=== PATIENT | female | born 1950 | race Caucasian/White ===

== ENCOUNTER → 2017-04-07 | Outpatient (CLI) | payer MEDICARE, BC ==
--- NOTE | 2017-04-08 09:08 | MM ---
Reason for exam: screening (asymptomatic). Last mammogram was performed 1 year ago. Physical Findings: A clinical breast exam by your physician is recommended on an annual basis and results should be correlated with mammographic findings. MG 3D Screening Mammo W/Cad Bilateral CC and MLO view(s) were taken. Prior study comparison: April 03, 2016, bilateral MG 3d screening mammo w/cad. May 14, 2010, bilateral digital screening mammogram. There are scattered fibroglandular densities. There is no discrete abnormality. No significant changes when compared with prior studies. ASSESSMENT: Negative, BI-RAD 1 RECOMMENDATION: Routine screening mammogram of both breasts in 1 year.
== END | disposition home or self-care (01) ==
LOC: RADMAMWWP 13:18
PROVIDERS: ATTEND Family Medicine
DX: Z12.31 Encounter for screening mammogram for malignant neoplasm of breast (principal)
CPT/HCPCS: 77063; G0202

== ENCOUNTER 2017-04-13 09:19 | Emergency (ER) | payer MEDICARE, BC ==
[2017-04-13 09:26] VITALS: RESP 18
[2017-04-13] MEDS ORDERED: HYDROmorphone 1 MG/ML 1 ML SYRINGE IVP STA ×2 (09:45→11:31)
[2017-04-13] MEDS ORDERED: SODIUM CHLORIDE 0.9% 1,000 ML IV STA (09:45)
[2017-04-13] MEDS ORDERED: ONDANSETRON 4 MG/2 ML VIAL IVP STA ×2 (09:45→11:31)
[2017-04-13] MEDS ORDERED: RX INFO: IV CONTRAST WAS GIVEN 1 EACH MISC MISCELLANE PRN (09:46)
--- NOTE | 2017-04-13 09:49 | ED ---
Abdominal Pain HPI - General Chief Complaint: Abdominal Pain Stated Complaint: Abdominal pain Time Seen by Provider: 04/13/17 09:28 Source: patient, RN notes reviewed Mode of arrival: ambulatory Limitations: no limitations - History of Present Illness Initial Comments: 58-year-old female presented emergency Department chief complaint abdominal pain. Patient states pain started on Wednesday and has worsened. Patient states that she saw her primary care physician's office yesterday and had ultrasound and lab work ordered. Patient states that she had SMALL MORNING WENT OVER TO THE OFFICE She HAD WORSENING PAIN AND SHE WAS SENT HERE FOR FURTHER EVALUATION. AT THAT TIME ULTRAM WAS NOT RED. PATIENT HAD PRIOR HISTORY OF KIDNEY STONES BUT STATES THE PAIN SEEMS TO BE DIFFERENT. SHE'S HAD NO NAUSEA VOMITING. SHE' S HAD SOME LOOSE STOOLS BUT DENIES ANY FEVER OR CHILLS. DENIES ANY CHEST PAIN OR SHORTNESS OF BREATH. SHE STATES NOTHING MAKES THE PAIN FEEL BETTER OR WORSE AT THIS TIME. - Related Data Home Medications Medication Instructions Recorded Confirmed Biotin 300 mcg PO DAILY 04/13/17 04/13/17 Cholecalciferol [Vitamin D3] 1,000 unit PO DAILY 04/13/17 04/13/17 Furosemide [Lasix] 20 mg PO DAILY 04/13/17 04/13/17 Lisinopril [Prinivil] 10 mg PO DAILY 04/13/17 04/13/17 [place]-3/Dha/Epa/Fish Oil [Fish Oil 1 cap PO DAILY 04/13/17 04/13/17 500 mg Softgel] Vitamin E (Dl,Tocopheryl Acet) 400 unit PO DAILY 04/13/17 04/13/17 [Vitamin E] metFORMIN HCL [Glucophage] 1,000 mg PO DAILY 04/13/17 04/13/17 metFORMIN HCL [Glucophage] 500 mg PO HS 04/13/17 04/13/17 traMADol HCL [Ultram] 50 mg PO DAILY PRN 04/13/17 04/13/17 Previous Rx's Medication Instructions Recorded Ciprofloxacin HCl [Cipro] 500 mg PO Q12HR #14 tablet 04/13/17 Hydrocodone/Acetaminophen [[place] 1 tab PO Q6HR PRN #15 tab 04/13/17 5-325] Allergies Allergy/AdvReac Type Severity Reaction Status Date / Time No Known Allergies Allergy Verified 04/13/17 09:53 Review of Systems ROS Statement: Those systems with pertinent positive or pertinent negative responses have been documented in the HPI. ROS Other: All systems not noted in ROS Statement are negative. Past Medical History Past Medical History: Heart Failure, Diabetes Mellitus, Hypertension History of Any Multi-Drug Resistant Organisms: None Reported Past Surgical History: Hysterectomy, Orthopedic Surgery Additional Past Surgical History / Comment(s): lens implants, knee Past Psychological History: No Psychological Hx Reported Smoking Status: Never smoker Past Alcohol Use History: None Reported Past Drug Use History: None Reported General Exam Limitations: no limitations General appearance: alert, in no apparent distress Head exam: Present: atraumatic, normocephalic, normal inspection Neck exam: Present: normal inspection. Absent: tenderness, meningismus, lymphadenopathy Respiratory exam: Present: normal lung sounds bilaterally. Absent: respiratory distress, wheezes, rales, rhonchi, stridor Cardiovascular Exam: Present: regular rate, normal rhythm, normal heart sounds. Absent: systolic murmur, diastolic murmur, rubs, gallop, clicks GI/Abdominal exam: Present: soft, tenderness (Moderate periumbilical tenderness) , normal bowel sounds. Absent: distended, guarding, rebound, rigid Back exam: Absent: CVA tenderness (R), CVA tenderness (L) Neurological exam: Present: alert, oriented X3, CN II-XII intact Skin exam: Present: warm, dry, intact, normal color. Absent: rash Course Vital Signs 04/13/17 04/13/17 09:22 10:16 Temperature 97.7 F Pulse Rate 93 86 Respiratory 18 18 Rate Blood Pressure 143/86 128/69 O2 Sat by Pulse 98 97 Oximetry Medical Decision Making - Medical Decision Making 66-year-old female presented for periumbilical abdominal pain. Patient ultrasound does not show anything significant jumping to her pain. Patient lab work is unremarkable CT does not show any acute process. Patient's urinalysis does reveal urinary tract infection. Patient we treated for this at this time return parameters were discussed. - Lab Data Result diagrams: 04/13/17 10:00 04/13/17 10:00 Lab Results 04/13/17 04/13/17 04/13/17 Range/Units 10:00 10:00 10:00 WBC 8.5 (3.8-10.6) k/uL RBC 4.59 (3.80-5.40) m/uL Hgb 14.6 (11.4-16.0) gm/dL Hct 42.0 (34.0-46.0) % MCV 91.4 (80.0-100.0) fL MCH 31.7 (25.0-35.0) pg MCHC 34.7 (31.0-37.0) g/dL RDW 12.6 (11.5-15.5) % Plt Count 283 (150-450) k/uL Neutrophils % 73 % Lymphocytes % 18 % Monocytes % 5 % Eosinophils % 2 % Basophils % 1 % Neutrophils # 6.2 (1.3-7.7) k/uL Lymphocytes # 1.5 (1.0-4.8) k/uL Monocytes # 0.5 (0-1.0) k/uL Eosinophils # 0.1 (0-0.7) k/uL Basophils # 0.1 (0-0.2) k/uL Sodium 141 (137-145) mmol/L Potassium 4.2 (3.5-5.1) mmol/L Chloride 103 (98-107) mmol/L Carbon Dioxide 24 (22-30) mmol/L Anion Gap 14 mmol/L BUN 20 H (7-17) mg/dL Creatinine 0.97 (0.52-1.04) mg/dL Est GFR (MDRD) Af Amer >60 (>60 ml/min/1.73 sqM) Est GFR (MDRD) Non-Af 57 (>60 ml/min/1.73 sqM) Glucose 127 H (74-99) mg/dL Plasma Lactic Acid Naren 1.9 (0.7-2.0) mmol/L Calcium 9.9 (8.4-10.2) mg/dL Total Bilirubin 0.6 (0.2-1.3) mg/dL AST 24 (14-36) U/L ALT 36 (9-52) U/L Alkaline Phosphatase 58 (38-126) U/L Total Protein 8.2 (6.3-8.2) g/dL Albumin 4.6 (3.5-5.0) g/dL Amylase 49 (30-110) U/L Lipase 160 (23-300) U/L Urine Color Urine Appearance (Clear) Urine pH (5.0-8.0) Ur Specific [place] (1.001-1.035) Urine Protein (Negative) Urine Glucose (UA) (Negative) Urine Ketones (Negative) Urine Blood (Negative) Urine Nitrite (Negative) Urine Bilirubin (Negative) Urine Urobilinogen (<2.0) mg/dL Ur Leukocyte Esterase (Negative) Urine RBC (0-5) /hpf Urine WBC (0-5) /hpf Ur Squamous Epith Cells (0-4) /hpf Urine Bacteria (None) /hpf Urine Mucus (None) /hpf 04/13/17 Range/Units 10:00 WBC (3.8-10.6) k/uL RBC (3.80-5.40) m/uL Hgb (11.4-16.0) gm/dL Hct (34.0-46.0) % MCV (80.0-100.0) fL MCH (25.0-35.0) pg MCHC (31.0-37.0) g/dL RDW (11.5-15.5) % Plt Count (150-450) k/uL Neutrophils % % Lymphocytes % % Monocytes % % Eosinophils % % Basophils % % Neutrophils # (1.3-7.7) k/uL Lymphocytes # (1.0-4.8) k/uL Monocytes # (0-1.0) k/uL Eosinophils # (0-0.7) k/uL Basophils # (0-0.2) k/uL Sodium (137-145) mmol/L Potassium (3.5-5.1) mmol/L Chloride (98-107) mmol/L Carbon Dioxide (22-30) mmol/L Anion Gap mmol/L BUN (7-17) mg/dL Creatinine (0.52-1.04) mg/dL Est GFR (MDRD) Af Amer (>60 ml/min/1.73 sqM) Est GFR (MDRD) Non-Af (>60 ml/min/1.73 sqM) Glucose (74-99) mg/dL Plasma Lactic Acid Naren (0.7-2.0) mmol/L Calcium (8.4-10.2) mg/dL Total Bilirubin (0.2-1.3) mg/dL AST (14-36) U/L ALT (9-52) U/L Alkaline Phosphatase (38-126) U/L Total Protein (6.3-8.2) g/dL Albumin (3.5-5.0) g/dL Amylase (30-110) U/L Lipase (23-300) U/L Urine Color Yellow Urine Appearance Clear (Clear) Urine pH 5.5 (5.0-8.0) Ur Specific [place] 1.016 (1.001-1.035) Urine Protein Trace H (Negative) Urine Glucose (UA) Negative (Negative) Urine Ketones Trace H (Negative) Urine Blood Negative (Negative) Urine Nitrite Negative (Negative) Urine Bilirubin Negative (Negative) Urine Urobilinogen <2.0 (<2.0) mg/dL Ur Leukocyte Esterase Moderate H (Negative) Urine RBC 1 (0-5) /hpf Urine WBC 32 H (0-5) /hpf Ur Squamous Epith Cells 5 H (0-4) /hpf Urine Bacteria Many H (None) /hpf Urine Mucus Occasional H (None) /hpf Disposition Clinical Impression: UTI (urinary tract infection), Abdominal pain Disposition: HOME SELF-CARE Condition: Stable Instructions: Abdominal Pain (ED) Additional Instructions: Please return to the Emergency Department if symptoms worsen or any other concerns. Prescriptions: Ciprofloxacin HCl [Cipro] 500 mg PO Q12HR #14 tablet Hydrocodone/Acetaminophen [[place] 5-325] 1 tab PO Q6HR PRN #15 tab PRN Reason: Pain Referrals: Dewayne Veliz MD [Primary Care Provider] - 1-2 days Time of Disposition: 11:33
[2017-04-13 10:28] LABS: Basophils # (A) 0.1 k/uL (0-0.2); Basophils % (A) 1 %; CHCM 35.2; Eosinophils # (A) 0.1 k/uL (0-0.7); Eosinophils % (A) 2 %; HDW 2.47; HGB 14.6 gm/dL (11.4-16.0); Luc # (Auto) 0.17; Luc % (Auto) 2; Lymphocytes # (A) 1.5 k/uL (1.0-4.8); Lymphocytes % (A) 18 %; MCH 31.7 pg (25.0-35.0); MCHC 34.7 g/dL (31.0-37.0); MCV 91.4 fL (80.0-100.0); Mean Platelet Volume 7.3; Monocytes # (A) 0.5 k/uL (0-1.0); Monocytes % (A) 5 %; Neutrophils # (A) 6.2 k/uL (1.3-7.7); Neutrophils % (A) 73 %; RBC 4.59 m/uL (3.80-5.40); RDW 12.6 % (11.5-15.5); WBC 8.5 k/uL (3.8-10.6); WBC (Perox) 8.18
[2017-04-13 10:33] LABS: Appearance,Urine Clear (Clear); Bacteria,Urine Many /hpf; Bilirubin,Urine Negative (Negative); Glucose,Urine (UA) Negative (Negative); Ketones,Urine Trace (Negative); Leukocyte Esterase,Urine Moderate (Negative); Mucus,Urine Occasional /hpf; Nitrite,Urine Negative (Negative); PH, Urine 5.5 (5.0-8.0); Particle Count 6856; Protein,Urine Trace (Negative); RBC,Urine 1 /hpf (0-5); Specific Gravity,Urine 1.016 (1.001-1.035); Squamous Epithelial Cell,Urine 5 /hpf (0-4); UA Billing (MACRO vs. MICRO) MICRO; Urobilinogen,Urine <2.0 mg/dL (<2.0); WBC,Urine 32 /hpf (0-5)
[2017-04-13 10:41] LABS: ALT 36 U/L (9-52); AST 24 U/L (14-36); Alkaline Phosphatase 58 U/L (38-126); Amylase 49 U/L (30-110); Anion Gap 14 mmol/L; Blood Urea Nitrogen 20 mg/dL (7-17); Calcium 9.9 mg/dL (8.4-10.2); Carbon Dioxide 24 mmol/L (22-30); Chloride 103 mmol/L (98-107); Glucose 127 mg/dL (74-99); Non-African American GFR(MDRD) 57 (>60 ml/min/1.73 sqM); Potassium 4.2 mmol/L (3.5-5.1); Sodium 141 mmol/L (137-145); Total Bilirubin 0.6 mg/dL (0.2-1.3); Total Protein 8.2 g/dL (6.3-8.2)
--- NOTE | 2017-04-13 11:16 | CT ---
EXAMINATION TYPE: CT abdomen pelvis w con DATE OF EXAM: 04/13/2017 COMPARISON: NONE HISTORY: Abdominal pain CT DLP: 1307 mGycm CONTRAST: CT scan of the abdomen and pelvis is performed without Oral Contrast and with IV Contrast, patient in jected with 100 ml mL of Omnipaque 300. FINDINGS: LUNG BASES-: No visible nodule. No infiltrate. LIVER/GB: There is evidence of fatty liver. No calcified gallstones. Stable since the liver. Biliary tree is of normal caliber. PANCREAS: No inflammation. No distinct mass. SPLEEN: No splenic enlargement. No lesion seen. ADRENALS: Stable left-sided adrenal nodule. Right adrenal gland is unremarkable. No thickening. KIDNEYS/BLADDER: No hydronephrosis. No nephrolithiasis. Renal cysts are stable. Urinary bladder gr ossly unremarkable. BOWEL: Normal appendix. Normal bowel caliber. No inflammation. Sigmoid diverticulosis without diver ticulitis. GENITAL ORGANS: No gross abnormality. LYMPH NODES: No greater than 1cm abdominal or pelvic lymph nodes are appreciated. AORTA: No significant abnormality. OSSEOUS STRUCTURES: No significant abnormality is seen. OTHER: Grade 2 anterolisthesis L5 on S1 with severe vacuum changes are unchanged. IMPRESSION: 1. No acute intra-abdominal process identified.
[2017-04-13] MEDS ORDERED: LEVOFLOXACIN 500 MG TAB PO STA (11:32)
[2017-04-13 12:22] VITALS: BP 126/73; PULSE 62; TEMP 98
== END 2017-04-13 12:20 | disposition home or self-care (01) ==
LOC: EC 09:19
DX: N39.0 Urinary tract infection, site not specified (principal); R10.33 Periumbilical pain; I11.0 Hypertensive heart disease with heart failure; I50.9 Heart failure, unspecified; E11.9 Type 2 diabetes mellitus without complications; Z79.84 Long term (current) use of oral hypoglycemic drugs; Z79.899 Other long term (current) drug therapy
CPT/HCPCS: 36415; 80053; 82150; 83605; 83690; 85025; 81001; 74177; 99284; 96374; 96375; 96376 ×2; 96361; J2405; J1170; Q9967

== ENCOUNTER → 2017-04-13 | Outpatient (CLI) | payer MEDICARE, BC ==
--- NOTE | 2017-04-13 09:40 | US ---
EXAMINATION TYPE: US gallbladder DATE OF EXAM: 04/13/2017 COMPARISON: 02/12/2016 CLINICAL HISTORY: 66-year-old female with R10 abdominal Pain. Acute epigastric pain. TECHNIQUE: Multiple sonographic images of the right upper quadrant are obtained. FINDINGS: Liver Length: 15.3 cm Gallbladder Wall: 0.1 cm CBD: 5.8 mm. Right Kidney: 9.1 x 3.9 x 5.0 cm Pancreas: wnl Liver: Diffuse heterogeneous and increased echotexture. There is a vague hypoechoic area measuring 14 x 9 x 9 mm in the posterior left hepatic lobe and a vague hypoechoic area measuring 12 x 8 x 10 mm i n the inferior right hepatic lobe that shows suggestion of posterior through transmission. Gallbladder: wnl Evidence for sonographic Joseph's sign: no CBD: wnl Right Kidney: No hydronephrosis. There is a 1.4 cm benign cortical cyst at the upper pole. A 7 mm ec hogenic focus at the lower pole shows no shadowing and probably represents a prominent vascular flexi on. IMPRESSION: 1. Suspect moderate hepatic steatosis. Correlate with LFTs, lipid profile, and patient risk factors. 2. Two small hypoechoic lesions within the liver measuring up to 1.4 cm. The one on the right likely corresponds to a flash filling hemangioma (on a background of fatty liver) when correlating with prio r CT. The lesion on the left is nonspecific. 6 month follow-up liver ultrasound can reassess.
== END | disposition home or self-care (01) ==
LOC: RADUSWWP 08:19
PROVIDERS: ATTEND Family Medicine
DX: K76.9 Liver disease, unspecified (principal)
CPT/HCPCS: 76705

== ENCOUNTER → 2017-04-29 | Outpatient (CLI) | payer MEDICARE, BC ==
--- NOTE | 2017-04-29 09:19 | NM ---
Nuclear medicine hepatobiliary scan. HISTORY: Pain. DOSAGE: The patient received 8 ounces ensure plus and 5.5 mCi of Technetium 99m Choletec. FINDINGS: There is normal hepatic extraction. The gallbladder is seen by 16 minutes. There is bilia ry to bowel clearance by 30 minutes. Ejection fraction is 98%. IMPRESSION: 1. Gallbladder is seen within normal time. 2. Ejection fraction of 98% which can occasionally be seen with hyperdynamic gallbladder. Correlate c linically.
== END | disposition home or self-care (01) ==
LOC: RADNMMAIN 06:48
PROVIDERS: ATTEND Surgery
DX: R10.84 Generalized abdominal pain (principal)
CPT/HCPCS: 78226; A9537

== ENCOUNTER → 2017-10-22 | Outpatient (CLI) | payer MEDICARE, BC ==
--- NOTE | 2017-10-22 15:24 | XR ---
EXAMINATION TYPE: XR chest 2V DATE OF EXAM: 10/22/2017 COMPARISON: Prior chest x-ray 04/24/2016 HISTORY: Z 13.9, preop back surgery, hypertension, abnormal chest x-ray TECHNIQUE: Frontal and lateral views of the chest are obtained. FINDINGS: Scoliotic curvature is present in the visualized thoracic spine. Bandlike area of increase d attenuation present at the left costophrenic angle level. Apical pleural thickening is stable. Prom inent lung volumes suggestive of underlying COPD. No evident airspace disease, pneumothorax, or pleur al effusion. Heart is small. Pulmonary vascularity and jett are stable. IMPRESSION: No acute cardiopulmonary process. Probable scarring at the left lung base.
== END | disposition home or self-care (01) ==
LOC: RADXRMAIN 11:58
PROVIDERS: ATTEND Orthopaedic Surgery Orthopaedic Surgery of the Spine
DX: Z13.9 Encounter for screening, unspecified (principal)
CPT/HCPCS: 71046; 87070

== ENCOUNTER → 2017-10-30 | Outpatient (CLI) | payer MEDICARE, BC | END | disposition home or self-care (01) | LOC: LABWHC1 10:00 | PROVIDERS: ATTEND Orthopaedic Surgery Orthopaedic Surgery of the Spine | DX: Z01.818 Encounter for other preprocedural examination (principal); M48.062 Spinal stenosis, lumbar region with neurogenic claudication | CPT/HCPCS: 86850; 86900; 86901 ==

== ENCOUNTER 2017-11-03 10:21 | Inpatient (IN) | payer MEDICARE, BC ==
[2017-10-26 17:44] VITALS: BMI 26.2
[~2017-11-03 10:21] MED LIST: BACITRACIN 50,000 UNIT, POLYMYXIN B 500,000 UNIT in SODIUM CHLORIDE 0.9% IRRIGATIO 1,00... IRRIGATION ONE; DEXAMETHASONE SOD PHOSPHATE 10 MG/ML 1 ML VIAL IV ONE; HYDROmorphone 0.5 MG/0.5 ML SYRINGE IVP PRN; ONDANSETRON 4 MG/2 ML VIAL IVP ONE; ceFAZolin IN SWFI 2 GM/20 ML SYRINGE IVP ONE
[2017-11-03] MEDS ORDERED: LIDOCAINE 1% 20 ML VIAL (10MG/ML) FOR IV START INTRADERMA ONE (11:18)
[2017-11-03] MEDS: LACTATED RINGERS 1,000 ML IV SCH (11:18)
[2017-11-03 11:21] LABS: Glucose,Whole Blood 129 mg/dL (75-99)
[2017-11-03] MEDS ORDERED: PHENYLEPHRINE-0.9% NACL SYG 1 MG/10 ML SYRINGE ONE (12:34)
[2017-11-03] MEDS ORDERED: LIDOCAINE 1% INJ 10MG/ML (20 ML MDV) ONE (12:34)
[2017-11-03] MEDS ORDERED: ROCURONIUM BROMIDE 10 MG/ML 10 ML VIAL IV ONE (12:34)
[2017-11-03] MEDS ORDERED: HYDROmorphone (PF) 1 MG/ML ONE (12:34)
[2017-11-03] MEDS ORDERED: SUCCINYLCHOLINE CHLORIDE 100 MG/5 ML SYR IV ONE (12:34)
[2017-11-03] MEDS ORDERED: GLYCOPYRROLATE 0.2 MG/ML 2 ML VIAL ONE (12:34)
[2017-11-03] MEDS ORDERED: NEOSTIGMINE 1 MG/ML 10 ML VIAL ONE (12:34)
[2017-11-03] MEDS ORDERED: ePHEDrine SULFATE/0.9% NACL/PF 50 MG/5 ML SYRINGE IV ONE (12:34)
[2017-11-03] MEDS ORDERED: PROPOFOL 10 MG/ML 20 ML VIAL IV ONE (12:34)
[2017-11-03] MEDS ORDERED: fentaNYL (PF) 50 MCG/ML 2 ML AMP ONE (12:34)
[2017-11-03] MEDS ORDERED: hydrALAZINE HCL 20 MG/ML 1 ML VIAL ONE (12:34)
[2017-11-03] MEDS ORDERED: SODIUM CHLORIDE 0.9% IRRIG 1,000 ML BTL IRRIGATION ONE (12:34)
[2017-11-03] MEDS ORDERED: HEPARIN SODIUM,PORCINE 10,000 UNIT/ML 1 ML VIAL ONE (12:34)
[2017-11-03] MEDS ORDERED: MIDAZOLAM 2 MG/2 ML VIAL ONE (12:34)
[2017-11-03] MEDS ORDERED: THROMBIN (BOVINE) 5,000 UNIT VIAL TOPICAL ONE (12:52)
[2017-11-03] MEDS ORDERED: LIDOCAINE 0.5% (PF) 5 MG/ML (50 ML SDV) SQ ONE (12:52)
[2017-11-03] MEDS ORDERED: GELATIN SPONGE,ABSORB (LARGE) 1 EACH SPONGE TOPICAL ONE (12:52)
[2017-11-03] MEDS ORDERED: BUPIVACAINE (PF) 0.25% 30 ML VIAL SQ ONE (12:52)
[2017-11-03] MEDS ORDERED: LACTATED RINGERS 1,000 ML IV ONE ×2 (13:40→15:57)
--- NOTE | 2017-11-03 15:53 | XR ---
Limited lumbar spine HISTORY: Needle placement Correlation to CT abdomen pelvis 08/17/2017 Single lateral view of the lumbar spine demonstrates anterolisthesis at the lumbar sacral junction, g rade 2 with associated loss of disc height and vacuum phenomenon. Spondylolysis is suspected at what is believed to be L5. The needle is overlying the superior endplate of L5. IMPRESSION: Orthopedic localization
[2017-11-03] MEDS ORDERED: MAGNESIUM HYDROXIDE 2,400 MG/10 ML CUP PO PRN (16:25)
[2017-11-03] MEDS ORDERED: HYDROmorphone 0.5 MG/0.5 ML SYRINGE IVP PRN (16:25)
[2017-11-03] MEDS ORDERED: BENZOCAINE/MENTHOL LOZENG 1 EACH LOZENGE MUCOUS MEM PRN (16:25)
[2017-11-03] MEDS ORDERED: HYDROcodone/APAP 5-325MG 1 EACH TAB PO PRN (16:26)
[2017-11-03] MEDS ORDERED: ONDANSETRON 4 MG/2 ML VIAL IVP PRN (16:26)
--- NOTE | 2017-11-03 16:39 | P.OP ---
Date of Procedure: 11/03/17 Preoperative Diagnosis: Severe grade 3 spondylolisthesis L5-S1 Spinal stenosis L5-S1 Severe low back pain Degenerative disc disease Lower extremity radiculopathy Postoperative Diagnosis: Same Anesthesia: GETA Pathology: none sent Condition: stable Disposition: PACU Description of Procedure: BRIEF OPERATIVE NOTE Preoperative Diagnosis: Severe grade 3 spondylolisthesis L5-S1, degenerative disc disease L5-S1, spinal stenosis L5-S1, lower extremity radiculopathy, low back pain, spondylolysis bilaterally L5-S1 Postoperative Diagnosis: Same Procedure: Laminectomy and decompression, with bilateral wide foraminotomy L5-S1 Posterior lateral decompression and fusion L5-S1 Discectomy for decompression L5-S1 Attempt [address] interbody graft L5-S1 Local autogenous bone grafting Use of Cell Saver Use of bone graft extenders Use of neuro monitoring Surgeon: Dr. Osman Sheet Metal Smith: Joe CRUZ who is present throughout the entire the case persistence during positioning, dissection, exposure, visualization, and all crucial elements of the case as well as closure. Anesthesia: General anesthesia per Dr. Moe Estimated blood loss: Approximately 250 mL Complications: None apparent Components implanted: K2M Embudo pedicle screw system with 4 screws and 2 rods. We were unable place interbody device. We did place DBX bone putty to supplemental local autogenous bone graft Disposition: To recovery room in good stable condition. OPERATIVE INDICATIONS The patient has had long-standing issues in their lower back and lower extremities. She is found have severe spondylolisthesis with grade 3 listhesis L5-S1 and spondylolysis at that level. She had severe bilateral foraminal stenosis and distortion at her lumbar spine with degenerative disc disease. These issues correlated well with her back and lower extremity symptoms which have been worsening despite aggressive conservative treatment. She is having progressive debility as of her lumbar issues. The patient has been through conservative treatment. We discussed various treatment options including surgery, and the patient wishes to proceed with surgery We discussed the risk, patient's alternatives and benefits of surgery including but not limited to, risk of bleeding risk of infection, risk of need for further surgery, risk of decreased, loss of motion, muscle function, malunion nonunion, hardware failure , nerve damage, paralysis, heart attack, blindness and . OPERATIVE SUMMARY After discussing all the risks, patient alternatives and benefits at length, the patient elected to proceed with surgical intervention, signed informed consent, and presented for their procedure. The patient was seen and examined in the preoperative holding area and the surgical site was marked. The patient was given antibiotics and brought to the operating room. The patient was sedated and intubated by anesthesia in standard fashion. The patient was positioned on to the operating room table in a prone position on the appropriate frame which was well-padded and well molded. We were careful to pad any bony prominences and pressure points. We were careful to maintain the patient's cervical spine and good neutral alignment and position throughout. The patient was prepped and draped in a normal standard fashion. An appropriate timeout and keystone protocol performed. We were able to proceed with the surgery. The local wound area was infiltrated with local anesthetic. An incision was made at the midline longitudinally over the appropriate levels at L5-S1. Dissection was taken down subcutaneously to the level of the fascia which was split midline. Dissection was taken over the lamina bilaterally over the facet joints and to the transverse processes. Intraoperative x-ray was taken which showed a marker at the appropriate level of L5. Note was made of obvious spondylolisthesis at L5-S1 which was severe. She had spondylolysis bilaterally and a loose Edwards fragment. With the appropriate level positively confirmed, we were able to proceed with placement of the pedicle holes and screws. The patient had all their twitches back. The wound was copiously irrigated and suctioned dry as had been done periodically throughout the case. Screw holes were established similarly at each level at L5 and S1 on the right. I also established screw holes at L5 and S1 on the left left. Also open while I was attempting interbody work. A sharp awl was used to establish the starting hole. It was palpated and found to have good for madsen and good base. A monitored Steffee probe was used to establish the pedicle hole. It was positioned so there was no stimulation at 12 mA. The hole was palpated and found to have good for madsen and a good base. The hole was tapped with the appropriate sized tap. The transverse process or sacral ala was decorticated with a high-speed bur. I was able to use these holes to place the appropriate size screw and good alignment and good position with good bony purchase. When the screws were inserted there were stimulated, and found to have no stimulation at 20 mA. I was able to turn my attention to the decompression. The decompression was performed with a combination of rongeurs, curettes, Kerrison rongeurs and a ball -tip feeler. There is severe bilateral foraminal stenosis and large osteophytes due to her progressive listhesis and chronic spondylolysis. As able get excellent central and bilateral foraminal decompression. All of the bone that was removed was stripped and morcellized for use as autogenous bone graft later in the case. I was able to obtain good central decompression as well as wide bilateral foraminal decompression. There is no evidence of dural tear or leak. Good hemostasis was maintained. The wound was irrigated and suctioned dry. I performed a complete facetectomy at the appropriate level on the most symptomatic side on the left. All bone that was removed was saved for local autogenous bone grafting. It was very difficult to gain access to the disc space as it had severe complete disc height loss and a large listhesis. I was able to gain access to the disc space at the appropriate level of L5-S1 but there is no significant space for placing an interbody device.. Good hemostasis was maintained. I was able to protect the neurologic structures. A discectomy was performed. This provided further decompression. I was also able to perform complete discectomy and endplate preparation with a combination of pituitary curettes, rasps and scrapers. There is noneto place an interbody device without compromising the neural structures. The wound was irrigated and suctioned dry. With the hardware intact, intraoperative x-ray was again taken which showed good alignment and position of the hardware at the appropriate levels of L5-S1. We were then able to measure, contour and place the rods and appropriate hardware bilaterally. I was able to place capcrews, tighten them down, and torque them off appropriately. With this intact I was able to place the local autogenous bone graft with additional bone graft enhancer as necessary into the posterior lateral gutters bilaterally. With the bone graft intact, a stable construct, and good decompression at the appropriate levels, we were able to proceed with closure. Good hemostasis was maintained. There is no evidence of dural tear or leak. The fascia was closed for a watertight closure. The subcutaneous tissue was closed over a superficial drain. The subcuticular tissue was closed with absorbable suture. The wound was cleaned and dried and dressed with the appropriate dressing. The drapes were broken down. The patient was gently rolled back onto their hospital bed being careful to maintain their cervical spine and good neutral alignment and position. They were woken up by anesthesia, extubated, and brought to the recovery room in good stable condition. The patient will be admitted to the hospital for appropriate postoperative care , medical management and monitoring. We will continue to follow them closely about the postoperative course.
[2017-11-03] MEDS ORDERED: HYDROmorphone 0.5 MG/0.5 ML SYRINGE IVP ONE (17:01)
[2017-11-03] MEDS ORDERED: HYDROmorphone 2 MG/ML 1 ML SYRINGE IVP ONE ×3 (17:06→17:25)
[2017-11-03] MEDS ORDERED: diphenhydrAMINE 50 MG/ML 1 ML VIAL IVP ONE (17:35)
[2017-11-03] MEDS ORDERED: SODIUM CHLORIDE 0.9% 1,000 ML IV ONE (17:51)
[2017-11-03] MEDS: DIAZEPAM 5 MG TAB PO PRN (18:47)
[2017-11-03] MEDS: SODIUM CHLORIDE 0.9% 1,000 ML IV SCH (19:34)
[2017-11-03 21:32] LABS: Glucose,Whole Blood 182 mg/dL (75-99)
[2017-11-03] MEDS: ceFAZolin IN SWFI 2 GM/20 ML SYRINGE IVP SCH (21:39)
[2017-11-03] MEDS: traMADol 50 MG TAB PO PRN (21:39)
[2017-11-04] MEDS: HYDROmorphone 0.5 MG/0.5 ML SYRINGE IVP PRN ×2 (00:14→05:06)
[2017-11-04] MEDS: ceFAZolin IN SWFI 2 GM/20 ML SYRINGE IVP SCH (05:07)
[2017-11-04 07:18] LABS: Basophils % (A) 0 %; Eosinophils # (A) 0.1 k/uL (0-0.7); Eosinophils % (A) 1 %; HCT 34.9 % (34.0-46.0); HGB 11.5 gm/dL (11.4-16.0); Lymphocytes # (A) 1.5 k/uL (1.0-4.8); Lymphocytes % (A) 18 %; MCH 30.6 pg (25.0-35.0); MCV 92.9 fL (80.0-100.0); Mean Platelet Volume 7.1; Monocytes # (A) 0.6 k/uL (0-1.0); Monocytes % (A) 7 %; Neutrophils # (A) 5.9 k/uL (1.3-7.7); Neutrophils % (A) 72 %; Platelet Count 224 k/uL (150-450); RBC 3.75 m/uL (3.80-5.40); RDW 12.7 % (11.5-15.5); WBC 8.2 k/uL (3.8-10.6)
[2017-11-04 07:21] LABS: Glucose,Whole Blood 130 mg/dL (75-99)
[2017-11-04] MEDS: HYDROcodone/APAP 5-325MG 1 EACH TAB PO PRN ×4 (07:22→22:02)
[2017-11-04 07:36] LABS: Anion Gap 9 mmol/L; Blood Urea Nitrogen 10 mg/dL (7-17); Carbon Dioxide 29 mmol/L (22-30); Chloride 103 mmol/L (98-107); Glucose 127 mg/dL (74-99); Potassium 3.7 mmol/L (3.5-5.1); Sodium 141 mmol/L (137-145)
[2017-11-04] MEDS: DIAZEPAM 5 MG TAB PO PRN ×3 (08:32→22:04)
[2017-11-04] MEDS: LACTATED RINGERS 1,000 ML IV SCH (08:33)
[2017-11-04] MEDS: LISINOPRIL 10 MG TAB PO SCH (08:34)
[2017-11-04] MEDS: CALCIUM CARB-VIT D 500MG-200UN 1 EACH TAB PO SCH (08:34)
[2017-11-04] MEDS: metFORMIN 500 MG TAB PO SCH (08:34)
[2017-11-04] MEDS: FUROSEMIDE 20 MG TAB PO SCH (08:34)
[2017-11-04] MEDS: VITAMIN E (DL,TOCOPHERYL ACET) 400 UNIT CAP PO SCH (08:34)
[2017-11-04] MEDS: ATORVASTATIN 20 MG TAB PO SCH (08:35)
[2017-11-04] MEDS: SENNOSIDES-DOCUSATE SODIUM 1 EACH TAB PO SCH (08:36)
[2017-11-04] MEDS: SODIUM CHLORIDE 0.9% 1,000 ML IV SCH ×2 (08:48→22:07)
--- NOTE | 2017-11-04 08:58 | FL ---
EXAMINATION TYPE: FL guidance operating room DATE OF EXAM: 11/03/2017 HISTORY: Flouroscopy time 13 seconds of fluoroscopy provided. IMPRESSION: 1. Fluoroscopy time.
[2017-11-04] MEDS ORDERED: NON-FORMULARY DRUG (Biotin [Biotin] 300 MCG) PO SCH (09:00)
[2017-11-04] MEDS ORDERED: NON-FORMULARY DRUG (Omega-3/Dha/Epa/Fish Oil [Fish Oil 500 Mg Softgel] 1 CAP) PO SCH (09:00)
--- NOTE | 2017-11-04 09:17 | XR ---
EXAM TYPE: LUMBAR SPINE X RAY SERIES COMPARISON: NONE HISTORY: Intraoperative images TECHNIQUE: 2 views are submitted. FINDINGS: Surgical changes involving the lumbosacral junction are submitted Limited resolution difficult to assess IMPRESSION: 1. Limited exam intraoperatively.
--- NOTE | 2017-11-04 10:31 | P.PN ---
Progress Note - Text Progress Note Date: 11/04/17 Orthopedic Spine Patient is a pleasant 66-year-old female who is seen and examined at the bedside following posterior lateral decompression and fusion performed yesterday. Patient states they are doing ok postsurgically. She states she has some pain at the surgical site but states it has been fairly well controlled. She did have significant difficulty with pain control last evening as she found it difficult while lying in bed. She is currently sitting in a bedside chair and states her back pain is much better controlled. She is sitting without difficulty. She states her most significant symptom is pain and numbness in the right lower extremity below the knee extending to the toes. She has some difficulty with range of motion of the right ankle and toes due to her pain. She states this was not present prior to surgical intervention. She did have some pain in the left lower extremity prior to surgical intervention but states she has had some improvement in the symptoms. Her Chiu catheter remains intact. She states she has been drinking lots of water without difficulty. She has been able to eat some food without difficulty. She has not work with physical therapy yet this morning but is looking forward to doing so. Currently does not complain of nausea, vomiting, fever, or chills. She does have a history of hypertension with elevated blood pressure prior to surgical intervention yesterday. She will be seen and examined by medicine. Physical Exam Lumbar Fusion: Status post surgical day number 1 Patient is awake, alert, and oriented 3 Vital signs stable; patient is sitting comfortably in a bedside chair Good chest excursion with deep inspiration and expiration Abdomen soft nontender Dorsiflexion, plantarflexion, and extensor hallucis longus positive sustained on the left Difficulty with dorsiflexion, plantarflexion, and extensor hallucis longus on the right lower extremity due to pain; she is able to perform some slow active range of motion with the right lower extremity No signs or symptoms of DVT; no calf pain; pneumatic cuffs not currently intact bilateral lower extremities Dressing is clean, dry, and intact; no erythema, purulence, or signs of infection Hemovac drain well secure Neurovascularly intact bilaterally lower extremities Assessment: Posterior lateral decompression and fusion L5-S1 Low back pain Right lower extremity radiculopathy Reduced active range of motion right lower extremity with dorsiflexion, plantarflexion, and flexion/extension of all toes of the right foot Hypertension Plan: 1. Ambulate as tolerated; work with Physical Therapy to increase mobilization 2. Continue pain control with IV and oral medications 3. Dressing changed to remain intact; Hemovac drain will plan to be discontinued tomorrow, 11/05/2017 4. Medical management can continue to manage patient for patient's other medical issues hypertension 5. We will continue to follow the patient closely 6. Patient can follow-up with Joe Singh PA-C or Dr. Carter Osman at [facility] in 2-3 weeks following discharge
[2017-11-04 11:14] LABS: Glucose,Whole Blood 231 mg/dL (75-99)
[2017-11-04 17:30] LABS: Glucose,Whole Blood 171 mg/dL (75-99)
[2017-11-04 20:40] LABS: Glucose,Whole Blood 189 mg/dL (75-99)
--- NOTE | 2017-11-04 22:21 | P.CONS ---
History of Present Illness - Reason for Consult Consult date: 11/04/17 Medical management of hypertension, diabetes and other medical problems - Chief Complaint Elective spine surgery - History of Present Illness Patient is a 66-year-old female with a known history of hypertension, diabetes type 2 [id number], hyperlipidemia and severe grade 3 spondylolisthesis L5-S1 and degenerative disc disease and spinal stenosis was admitted to hospital for laminectomy and decompression with bilateral wide foraminotomy L5-S1. Patient tolerated the procedure well. Patient does complaining of some shooting down pain below the waistline. Otherwise currently denied any complaints of chest pain or shortness of breath. No nausea vomiting or abdominal pain. No headache or dizziness or lightheadedness. No fever no chills. Review of Systems Constitutional: Patient denies any fever or chills . No generalized weakness or weight loss. Abdomen: Patient denied nausea vomiting and diarrhea and abdominal pain. Cardiovascular: Patient denies any chest pain or short of breath no palpitations. Respiratory: patient denied any cough is from production. No shortness of breath Neurologic: Patient denied any numbness or tingling headache. Musculoskeletal: Patient denies any complaints of joint swelling or deformity. Back pain radiating down the legs. Sharp shooting down pain Skin: Negative Psychiatric: Negative Endocrine: No heat or cold intolerance. No recent weight gain. Genitourinary: No dysuria or hematuria. All other 14 point ROS negative except the above Past Medical History Past Medical History: Diabetes Mellitus, Hyperlipidemia, Hypertension, Musculoskeletal Disorder Additional Past Medical History / Comment(s): Kidney stones 2013, ?gallstones 2017, pain down left leg to toes, scoliosis History of Any Multi-Drug Resistant Organisms: None Reported Past Surgical History: Hysterectomy, Orthopedic Surgery Additional Past Surgical History / Comment(s): cataract surg., left knee cartilage removed, epidural back injections, procedure to have nerves burned in lower back Past Anesthesia/Blood Transfusion Reactions: No Reported Reaction Past Psychological History: No Psychological Hx Reported Smoking Status: Former smoker Past Alcohol Use History: None Reported Additional Past Alcohol Use History / Comment(s): quit smoking in 1997, smoked > 20 yrs., pack lasted couple days Past Drug Use History: None Reported - Past Family History Sister(s) Family Medical History: Diabetes Mellitus Additional Family Medical History / Comment(s): One sister had thyroid issues, one sister's family has diabetes. Brother(s) Family Medical History: Cancer Mother Family Medical History: Neurologic Disorder Additional Family Medical History / Comment(s): Parkinson's disease Father Family Medical History: Deep Vein Thrombosis (DVT) Medications and Allergies Home Medications Medication Instructions Recorded Confirmed Type Biotin 300 mcg PO DAILY 04/13/17 11/03/17 History Lisinopril [Prinivil] 10 mg PO DAILY 04/13/17 11/03/17 History [place]-3/Dha/Epa/Fish Oil [Fish Oil 1 cap PO DAILY 04/13/17 11/03/17 History 500 mg Softgel] Vitamin E (Dl,Tocopheryl Acet) 400 unit PO DAILY 04/13/17 11/03/17 History [Vitamin E] traMADol HCL [Ultram] 50 mg PO Q6H PRN 04/13/17 11/03/17 History Atorvastatin [Lipitor] 20 mg PO DAILY 10/26/17 11/03/17 History Calcium Carbonate/Vitamin D3 1 tab PO DAILY 10/26/17 11/03/17 History [Calcium 600-Vit D3 400 Caplet] Furosemide [Lasix] 20 mg PO DAILY 10/26/17 11/03/17 History Ibuprofen [Motrin] 800 mg PO Q6H PRN 10/26/17 11/03/17 History metFORMIN HCL [Glucophage] 500 mg PO QAM 10/26/17 11/03/17 History Allergies Allergy/AdvReac Type Severity Reaction Status Date / Time No Known Allergies Allergy Verified 11/03/17 16:55 Physical Exam Vitals: Vital Signs Temp Pulse Resp BP BP Pulse Ox 11/04/17 08:00 16 11/04/17 07:00 98.1 F 83 16 143/72 98 11/04/17 01:54 98.1 F 85 16 143/65 99 11/04/17 00:00 85 16 11/03/17 20:00 16 11/03/17 19:45 84 125/66 11/03/17 19:30 87 142/76 11/03/17 19:24 99 11/03/17 19:15 82 118/64 11/03/17 19:00 82 128/69 11/03/17 18:45 92 168/82 11/03/17 18:30 93 161/82 11/03/17 18:15 139/46 91 L 11/03/17 18:00 97.5 F L 94 16 151/76 99 11/03/17 17:45 83 16 121/64 98 11/03/17 17:15 78 16 143/65 95 11/03/17 17:00 84 16 160/70 143/65 96 11/03/17 16:36 97.9 F 97 22 160/75 97 11/03/17 14:51 89 14 166/75 Intake and Output 11/03/17 11/04/17 11/04/17 22:59 06:59 14:59 Intake Total 850 1080 780 Output Total 3975 3470 Balance -3125 2390 780 Intake: IV 100 Intake, IV Titration 150 600 600 Amount Sodium Chloride 0.9% 1, 150 600 600 000 ml @ 75 mls/hr IV . [id number] [facility] Rx#:[id number] Oral 600 480 180 Output: Drainage 50 70 Medial Back 50 70 Urine 3675 3400 Estimated Blood Loss 250 Other: Voiding Method Indwelling Catheter PHYSICAL EXAMINATION: Patient is lying in the bed comfortably, no acute distress, awake alert and oriented.. HEENT: Normocephalic. Neck is supple. Pupils reactive. Nostrils clear. Oral cavity is moist. Ears reveal no drainage. Neck reveals no JVD, carotid bruits, or thyromegaly. CHEST EXAMINATION: Trachea is central. Symmetrical expansion. Lung hutchins clear to auscultation and percussion. CARDIAC: Normal S1, S2 with no gallops. No murmurs ABDOMEN: Soft. Bowel sounds normal. No organomegaly. No abdominal bruits. Extremities: reveal no edema. No clubbing or cyanosis Neurologically awake, alert, oriented x3 with well-coordinated movements. No focal deficits noted Skin: No rash or skin lesions. Psychiatric: Coperative. Nonsuicidal Musculoskeletal: L5-S1 surgery site intact and SY drain in place. No joint swelling or deformity. Normal range of motion. Results CBC & Chem 7: 11/04/17 06:55 11/04/17 06:55 Labs: Abnormal Lab Results - Last 24 Hours (Table) 11/03/17 11/04/17 11/04/17 Range/Units 21:30 06:55 06:55 RBC 3.75 L (3.80-5.40) m/uL Glucose 127 H (74-99) mg/dL POC Glucose (mg/dL) 182 H (75-99) mg/dL 11/04/17 11/04/17 Range/Units 07:11 11:12 RBC (3.80-5.40) m/uL Glucose (74-99) mg/dL POC Glucose (mg/dL) 130 H 231 H (75-99) mg/dL Assessment and Plan Assessment: Status post laminectomy and decompression L5-S1 Hypertension controlled. Continue with lisinopril and Lasix as per home dose Diabetes type 2. Osteoarthritis Hyperlipidemia DVT prophylaxis Plan: Patient will be continued on home blood pressure medications and metformin as well. Insulin sliding scale. Continue the pain management and bowel regimen. We'll follow closely. Further recommendations based on the clinical course. Thank you for your consult. Time with Patient: Greater than 30
[2017-11-05] MEDS: HYDROcodone/APAP 5-325MG 1 EACH TAB PO PRN ×4 (02:16→17:03)
[2017-11-05] MEDS: DIAZEPAM 5 MG TAB PO PRN ×3 (05:46→20:00)
[2017-11-05] MEDS: LACTATED RINGERS 1,000 ML IV SCH (05:57)
[2017-11-05 07:08] LABS: Glucose,Whole Blood 157 mg/dL (75-99)
[2017-11-05] MEDS: metFORMIN 500 MG TAB PO SCH (08:43)
[2017-11-05] MEDS: LISINOPRIL 10 MG TAB PO SCH (08:43)
[2017-11-05] MEDS: CALCIUM CARB-VIT D 500MG-200UN 1 EACH TAB PO SCH (08:43)
[2017-11-05] MEDS: FUROSEMIDE 20 MG TAB PO SCH (08:43)
[2017-11-05] MEDS: ATORVASTATIN 20 MG TAB PO SCH (08:43)
[2017-11-05] MEDS: VITAMIN E (DL,TOCOPHERYL ACET) 400 UNIT CAP PO SCH (08:43)
[2017-11-05] MEDS: SENNOSIDES-DOCUSATE SODIUM 1 EACH TAB PO SCH (08:43)
[2017-11-05] MEDS: SODIUM CHLORIDE 0.9% 1,000 ML IV SCH ×2 (08:44→22:09)
--- NOTE | 2017-11-05 08:48 | P.PN ---
Progress Note - Text Progress Note Date: 11/05/17 Orthopedic Spine: Patient is a pleasant 66-year-old female who is seen and examined at the bedside following posterior lateral decompression and fusion performed Wednesday. Patient states she has continued to have significant pain in the lower extremities postsurgically. She states she has difficulty lifting her her legs bilaterally independently due to her pain. She states her pain varies and radiates over the anterior thighs and down the anterior lower extremities. Sometimes the symptoms are greater in one lower extremity than the other. She has been able to perform dorsiflexion, plantarflexion, little toes of the right lower extremity better today than yesterday. She has had some difficulty getting out of bed due to her pain. She states she would be unable to ambulate on her own without assistance. She states her pain is well-controlled shortly after receiving her pain medication but that once he begins to wear off she feels significant difficulty with pain control. She is currently only receiving oral pain medications although IV pain medication has been prescribed an as-needed basis. Chiu catheter has been discontinued. She is voiding without difficulty. She has been able to sit on a bedside commode. She is not expressing any abdominal pain. She is passing gas but has not had a bowel movement. She states she has been drinking lots of water without difficulty. She has been able to eat some food without difficulty and ate more this morning. Currently does not complain of nausea, vomiting, fever, or chills. She does have a history of hypertension with elevated blood pressure prior to surgical intervention yesterday. She will be seen and examined by medicine. She would be willing to discuss the possibility of discharge to a rehabilitation facility prior to returning home. Physical Exam Lumbar Fusion: Status post surgical day number 2 Patient is awake, alert, and oriented 3 Vital signs stable; patient is sitting comfortably in a bedside chair Good chest excursion with deep inspiration and expiration Abdomen soft nontender Dorsiflexion, plantarflexion, and extensor hallucis longus positive sustained on the left Difficulty with dorsiflexion, plantarflexion, and extensor hallucis longus on the right lower extremity due to pain but has had some improvement as compared to yesterday; she is able to perform some slow active range of motion with the right lower extremity No signs or symptoms of DVT; no calf pain; pneumatic cuffs currently intact bilateral lower extremities Dressing is clean, dry, and intact; no erythema, purulence, or signs of infection Dressing removed during physical examination; no significant pain with palpation over the surgical site; no active drainage; dressing changed to nonstick Telfa and Tegaderm Hemovac drain well secure; Hemovac drain removed during physical examination Neurovascularly intact bilaterally lower extremities Assessment: Posterior lateral decompression and fusion L5-S1 Low back pain Right lower extremity radiculopathy Reduced active range of motion right lower extremity with dorsiflexion, plantarflexion, and flexion/extension of all toes of the right foot Hypertension Plan: 1. Ambulate as tolerated; work with Physical Therapy to increase mobilization 2. Continue pain control with IV and oral medications; patient may receive oral [place] and IV Dilaudid as prescribed as needed for relief of her symptoms; pain control discussed with nursing in which we discussed it is okay for the patient received both IV and oral pain medications as prescribed as needed for control of her symptoms 3. Dressing and Hemovac drain have been removed during physical examination; dressing changed to nonstick Telfa and Tegaderm 4. We will plan consultation with social work and occupational therapy; may plan for discharge to rehabilitation facility at discharge 5. Medical management can continue to manage patient for patient's other medical issues hypertension 6. We will continue to follow the patient closely 7. Patient can follow-up with Joe Singh PA-C or Dr. Carter Osman at [facility] in 2-3 weeks following discharge
[2017-11-05 11:50] LABS: Glucose,Whole Blood 179 mg/dL (75-99)
[2017-11-05] MEDS ORDERED: HYDROmorphone 2 MG TAB PO PRN (13:35)
[2017-11-05] MEDS ORDERED: HYDROmorphone 4 MG TABLET PO PRN (13:36)
[2017-11-05] MEDS: traMADol 50 MG TAB PO PRN ×2 (14:15→20:00)
[2017-11-05 17:15] LABS: Glucose,Whole Blood 142 mg/dL (75-99)
--- NOTE | 2017-11-05 20:27 | P.PN ---
Subjective Progress Note Date: 11/05/17 Progress note being dictated for Dr. Keita Interval history:Patient is a 66-year-old female with a known history of hypertension, diabetes type 2 [id number], hyperlipidemia and severe grade 3 spondylolisthesis L5-S1 and degenerative disc disease and spinal stenosis was admitted to hospital for laminectomy and decompression with bilateral wide foraminotomy L5-S1. Patient tolerated the procedure well. Patient does complaining of some shooting down pain below the waistline. Otherwise currently denied any complaints of chest pain or shortness of breath. No nausea vomiting or abdominal pain. No headache or dizziness or lightheadedness. No fever no chills. Review of Systems Constitutional: Patient denies any fever or chills . No generalized weakness or weight loss. Abdomen: Patient denied nausea vomiting and diarrhea and abdominal pain. Cardiovascular: Patient denies any chest pain or short of breath no palpitations. Respiratory: patient denied any cough is from production. No shortness of breath Neurologic: Patient denied any numbness or tingling headache. Musculoskeletal: Patient denies any complaints of joint swelling or deformity. Back pain radiating down the legs. Sharp shooting down pain Skin: Negative Psychiatric: Negative Endocrine: No heat or cold intolerance. No recent weight gain. Genitourinary: No dysuria or hematuria. All other 14 point ROS negative except the above 11/05/2017 complains of pain, unrelieved with oral agents agents; instructed to also use IV pain medication. Currently sitting up in chair, visiting with family. Positive flatus, no bowel movement. Patient states she is going to [facility] subacute rehab at discharge. Denies chest pain, palpitations or increasing shortness of breath. Denies lightheadedness or dizziness or focal deficits. Objective - Vital Signs Vital signs: Vital Signs Temp 98.4 F 11/05/17 19:31 Pulse 87 11/05/17 19:31 Resp 18 11/05/17 19:31 BP 138/87 11/05/17 19:31 Pulse Ox 95 11/05/17 07:00 Intake & Output 11/05/17 11/05/17 11/06/17 06:59 18:59 06:59 Intake Total 540 1077 Output Total 110 Balance 430 1077 Intake: Intake, IV Titration 600 Amount Sodium Chloride 0.9% 1, 600 000 ml @ 75 mls/hr IV . [id number] Rx#:[id number] Oral 540 477 Output: Drainage 110 Medial Back 110 Other: Voiding Method Bedside Commode # Voids 3 3 - Exam PHYSICAL EXAMINATION: Patient is sitting up in chair, no acute distress, awake alert and oriented.. HEENT: Normocephalic. Neck is supple. Pupils reactive. Nostrils clear. Oral cavity is moist. Neck reveals no JVD, carotid bruits, or thyromegaly. CHEST EXAMINATION: Trachea is central. Symmetrical expansion. Lung hutchins clear to auscultation and percussion. CARDIAC: Normal S1, S2 with no gallops. No murmurs ABDOMEN: Soft. Bowel sounds normal. No organomegaly. No abdominal bruits. Extremities: reveal no edema. No clubbing or cyanosis Neurologically awake, alert, oriented x3 with well-coordinated movements. No focal deficits noted Skin: No rash or skin lesions. Psychiatric: Coperative. Nonsuicidal Musculoskeletal: L5-S1 surgery site intact. No joint swelling or deformity. Normal range of motion. - Labs CBC & Chem 7: 11/04/17 06:55 11/04/17 06:55 Labs: Abnormal Lab Results - Last 24 Hours (Table) 11/04/17 11/05/17 11/05/17 Range/Units 20:35 07:03 11:29 POC Glucose (mg/dL) 189 H 157 H 179 H (75-99) mg/dL 11/05/17 Range/Units 17:10 POC Glucose (mg/dL) 142 H (75-99) mg/dL Assessment and Plan Assessment: Status post laminectomy and decompression L5-S1 Hypertension Diabetes type 2. Osteoarthritis Hyperlipidemia DVT prophylaxis Plan: Continue on current medication regime ,monitoring and symptomatic treatment. Pain management as per orthopedic /spine surgery. Continue with bowel regimen. Subacute rehab at discharge. Further recommendations based on the clinical course. Thank you for your consult. The impression and plan of care has been dictated as directed. : I performed a history and examination of this patient, discussed the same with the dictator. I agree with the dictator's note ,documented as a scribe. Any additional findings or plans will be noted.
[2017-11-05 20:35] LABS: Glucose,Whole Blood 210 mg/dL (75-99)
[2017-11-06] MEDS: HYDROcodone/APAP 5-325MG 1 EACH TAB PO PRN ×4 (00:29→18:34)
[2017-11-06] MEDS: traMADol 50 MG TAB PO PRN ×3 (04:35→17:10)
[2017-11-06] MEDS: DIAZEPAM 5 MG TAB PO PRN ×3 (04:35→17:10)
[2017-11-06] MEDS: LACTATED RINGERS 1,000 ML IV SCH (05:37)
[2017-11-06 07:11] LABS: Glucose,Whole Blood 134 mg/dL (75-99)
[2017-11-06] MEDS: metFORMIN 500 MG TAB PO SCH (08:03)
[2017-11-06] MEDS: FUROSEMIDE 20 MG TAB PO SCH (08:05)
[2017-11-06] MEDS: VITAMIN E (DL,TOCOPHERYL ACET) 400 UNIT CAP PO SCH (08:05)
[2017-11-06] MEDS: ATORVASTATIN 20 MG TAB PO SCH (08:05)
[2017-11-06] MEDS: CALCIUM CARB-VIT D 500MG-200UN 1 EACH TAB PO SCH (08:05)
[2017-11-06] MEDS: LISINOPRIL 10 MG TAB PO SCH (08:08)
[2017-11-06] MEDS: GABAPENTIN 300 MG CAP PO SCH ×2 (10:25→17:10)
[2017-11-06] MEDS: SENNOSIDES-DOCUSATE SODIUM 1 EACH TAB PO SCH (10:26)
[2017-11-06 11:26] LABS: Glucose,Whole Blood 280 mg/dL (75-99)
--- NOTE | 2017-11-06 13:44 | P.PN ---
Subjective Progress Note Date: 11/06/17 Principal diagnosis: L5-S1 Spondy Patient is seen at bedside this morning. She is postop day #3 from a TLIF at L5 -S1. She has pain at the surgical site as expected. She has had some right leg pain that has been improving. Review of systems is negative for calf pain, fever, chills, chest pain, shortness of breath or other Objective - Vital Signs Vital signs: Vital Signs Temp 97.7 F 11/06/17 07:00 Pulse 83 11/06/17 07:00 Resp 16 11/06/17 07:00 BP 144/85 11/06/17 07:00 Pulse Ox 98 11/06/17 07:00 Intake & Output 11/05/17 11/06/17 11/06/17 18:59 06:59 18:59 Intake Total 1077 1200 120 Output Total 500 Balance 1077 1200 -380 Intake: Intake, IV Titration 600 1200 Amount Sodium Chloride 0.9% 1, 600 1200 000 ml @ 75 mls/hr IV . [id number] Rx#:[id number] Oral 477 120 Output: Urine 500 Other: Voiding Method Bedside Commode # Voids 3 2 2 # Bowel Movements 1 - Exam Inspection reveals a benign surgical wound. There is no active bleeding or drainage. Neurovascular status is grossly intact throughout the lower extremities with motor and sensation fully. Negative straight leg raising and dural tension signs. Calf is soft and nontender. 2+ dorsalis pedis pulse and less than 2 second cap refill is present. - Constitutional General appearance: Present: no acute distress - Psychiatric Psychiatric: Present: A&O x's 3, appropriate affect, intact judgment & insight - Labs CBC & Chem 7: 11/04/17 06:55 11/04/17 06:55 Labs: Abnormal Lab Results - Last 24 Hours (Table) 11/05/17 11/05/17 11/06/17 Range/Units 17:10 20:32 06:59 POC Glucose (mg/dL) 142 H 210 H 134 H (75-99) mg/dL 11/06/17 Range/Units 11:23 POC Glucose (mg/dL) 280 H (75-99) mg/dL Assessment and Plan (1) Spondylisthesis Narrative/Plan: She will continue with routine postop orthopedic protocol including pain management, wound care, physical therapy, DVT prophylaxis and medical management. I've added neurontin to per pain medicine regimen. Current Visit: Yes Status: Acute Priority: Medium Code(s): M43.10 - SPONDYLOLISTHESIS, SITE UNSPECIFIED SNOMED Code(s): 098385518 Time with Patient: Less than 30
[2017-11-06] MEDS: SODIUM CHLORIDE 0.9% 1,000 ML IV SCH (14:59)
[2017-11-06 18:00] LABS: Glucose,Whole Blood 187 mg/dL (75-99)
[2017-11-06 20:49] LABS: Glucose,Whole Blood 251 mg/dL (75-99)
--- NOTE | 2017-11-07 00:01 | P.PN ---
Subjective Progress Note Date: 11/06/17 Principal diagnosis: Laminectomy Interval history:Patient is a 66-year-old female with a known history of hypertension, diabetes type 2 [id number], hyperlipidemia and severe grade 3 spondylolisthesis L5-S1 and degenerative disc disease and spinal stenosis was admitted to hospital for laminectomy and decompression with bilateral wide foraminotomy L5-S1. Patient tolerated the procedure well. Patient does complaining of some shooting down pain below the waistline. Otherwise currently denied any complaints of chest pain or shortness of breath. No nausea vomiting or abdominal pain. No headache or dizziness or lightheadedness. No fever no chills. 11/05/2017 complains of pain, unrelieved with oral agents agents; instructed to also use IV pain medication. Currently sitting up in chair, visiting with family. Positive flatus, no bowel movement. Patient states she is going to [facility] subacute rehab at discharge. Denies chest pain, palpitations or increasing shortness of breath. Denies lightheadedness or dizziness or focal deficits. 11/06/2017 Patient says that her right leg pain pain is better now. No fever no chills. No acute overnight issues. No complains of chest pain or shortness of breath. No nausea vomiting or abdominal pain. Current medications reviewed Objective - Vital Signs Vital signs: Vital Signs Temp 97.2 F L 11/06/17 14:38 Pulse 83 11/06/17 14:38 Resp 16 11/06/17 14:38 BP 102/58 11/06/17 14:38 Pulse Ox 100 11/06/17 14:38 Intake & Output 11/06/17 11/06/17 11/07/17 06:59 18:59 06:59 Intake Total 1200 320 Output Total 500 Balance 1200 -180 Intake: Intake, IV Titration 1200 200 Amount Sodium Chloride 0.9% 1, 1200 000 ml @ 75 mls/hr IV . [id number] [facility] Rx#:[id number] Sodium Chloride 0.9% 1, 200 000 ml As IV .[facility] Rx#:[id number] Oral 120 Output: Urine 500 Other: # Voids 2 2 # Bowel Movements 1 - Exam Patient is lying in the bed comfortably, no acute distress, awake alert and oriented.. HEENT: Normocephalic. Neck is supple. Pupils reactive. Nostrils clear. Oral cavity is moist. Ears reveal no drainage. Neck reveals no JVD, carotid bruits, or thyromegaly. CHEST EXAMINATION: Trachea is central. Symmetrical expansion. Lung hutchins clear to auscultation and percussion. CARDIAC: Normal S1, S2 with no gallops. No murmurs ABDOMEN: Soft. Bowel sounds normal. No organomegaly. No abdominal bruits. Extremities: reveal no edema. No clubbing or cyanosis Neurologically awake, alert, oriented x3 with well-coordinated movements. No focal deficits noted Skin: No rash or skin lesions. Psychiatric: Coperative. Nonsuicidal Musculoskeletal: L5-S1 surgery site intact and SY drain in place. No joint swelling or deformity. Normal range of motion. - Labs CBC & Chem 7: 11/04/17 06:55 11/04/17 06:55 Labs: Abnormal Lab Results - Last 24 Hours (Table) 11/06/17 11/06/17 11/06/17 Range/Units 06:59 11:23 17:04 POC Glucose (mg/dL) 134 H 280 H 187 H (75-99) mg/dL 11/06/17 Range/Units 20:48 POC Glucose (mg/dL) 251 H (75-99) mg/dL Assessment and Plan Assessment: Status post laminectomy and decompression L5-S1 Hypertension controlled. Continue with lisinopril and Lasix as per home dose Diabetes type 2. Osteoarthritis Hyperlipidemia DVT prophylaxis Plan: Patient will be continued on home blood pressure medications and metformin as well. Insulin sliding scale. Continue the pain management and bowel regimen. We'll follow closely. Further recommendations based on the clinical course. Thank you for your consult.
[2017-11-07] MEDS: SODIUM CHLORIDE 0.9% 1,000 ML IV SCH ×2 (01:12→18:21)
[2017-11-07] MEDS: GABAPENTIN 300 MG CAP PO SCH ×4 (01:21→21:19)
[2017-11-07] MEDS: DIAZEPAM 5 MG TAB PO PRN ×3 (01:31→21:24)
[2017-11-07] MEDS: LACTATED RINGERS 1,000 ML IV SCH (03:57)
[2017-11-07] MEDS: HYDROcodone/APAP 5-325MG 1 EACH TAB PO PRN (06:07)
[2017-11-07 07:48] LABS: Glucose,Whole Blood 204 mg/dL (75-99)
[2017-11-07] MEDS: traMADol 50 MG TAB PO PRN ×2 (07:57→17:36)
[2017-11-07] MEDS: FUROSEMIDE 20 MG TAB PO SCH (07:59)
[2017-11-07] MEDS: ATORVASTATIN 20 MG TAB PO SCH (07:59)
[2017-11-07] MEDS: metFORMIN 500 MG TAB PO SCH (07:59)
[2017-11-07] MEDS: CALCIUM CARB-VIT D 500MG-200UN 1 EACH TAB PO SCH (07:59)
[2017-11-07] MEDS: LISINOPRIL 10 MG TAB PO SCH (07:59)
[2017-11-07] MEDS: VITAMIN E (DL,TOCOPHERYL ACET) 400 UNIT CAP PO SCH (08:00)
[2017-11-07] MEDS ORDERED: HYDROcodone/APAP 7.5-325MG 1 EACH TAB PO PRN ×2 (08:50)
[2017-11-07 11:17] LABS: Glucose,Whole Blood 225 mg/dL (75-99)
[2017-11-07] MEDS: HYDROcodone/APAP 7.5-325MG 1 EACH TAB PO PRN ×2 (13:07→21:21)
[2017-11-07] MEDS: SENNOSIDES-DOCUSATE SODIUM 1 EACH TAB PO SCH (14:17)
--- NOTE | 2017-11-07 14:18 | P.PN ---
Subjective Progress Note Date: 11/07/17 Principal diagnosis: L5-S1 Spondy Patient is seen at bedside this morning. She is postop day #4 from a TLIF at L5 -S1. She has pain at the surgical site as expected but is controlled. She has had some right leg pain radiating to her foot that worsens with change of position, sitting up, standing and ambulating. She denies constant numbness or tingling. Review of systems is negative for calf pain, fever, chills, chest pain , shortness of breath or other Objective - Vital Signs Vital signs: Vital Signs Temp 99.1 F 11/07/17 07:00 Pulse 85 11/07/17 07:00 Resp 20 11/07/17 07:00 BP 143/69 11/07/17 07:00 Pulse Ox 96 11/07/17 07:00 Intake & Output 11/06/17 11/07/17 11/07/17 18:59 06:59 18:59 Intake Total 320 1080 400 Output Total 500 Balance -180 1080 400 Intake: Intake, IV Titration 200 Amount Sodium Chloride 0.9% 1, 200 000 ml As IV .[employer] Rx#:[id number] Oral 120 1080 400 Output: Urine 500 Other: Voiding Method Toilet # Voids 2 3 1 # Bowel Movements 1 - Exam Inspection reveals a benign surgical wound at the lumbar spine. There is no active bleeding or drainage. Neurovascular status is grossly intact throughout the lower extremities with motor and sensation. Strength is at least 3/5 with AT /EHL on right and may be limited due to subjective pain. Remainder of bilateral lower extremities motor exam is 5/5. Sensation to touch is intact L2-S1 bilaterally. Negative straight leg raising or dural tension signs. Calf is soft and nontender. 2+ dorsalis pedis pulse and less than 2 second cap refill is present. - Constitutional General appearance: Present: no acute distress - Psychiatric Psychiatric: Present: A&O x's 3, appropriate affect, intact judgment & insight - Labs CBC & Chem 7: 11/04/17 06:55 11/04/17 06:55 Labs: Abnormal Lab Results - Last 24 Hours (Table) 11/06/17 11/06/17 11/07/17 Range/Units 17:04 20:48 06:52 POC Glucose (mg/dL) 187 H 251 H 204 H (75-99) mg/dL 11/07/17 Range/Units 11:08 POC Glucose (mg/dL) 225 H (75-99) mg/dL Assessment and Plan (1) Spondylisthesis Narrative/Plan: She will continue with routine postop orthopedic protocol including pain management, wound care, physical therapy, DVT prophylaxis and medical management. I've increased her neurontin dose and pain medicine dose. Will continue to monitor. She would benefit from rehab placement. Current Visit: Yes Status: Acute Priority: Medium Code(s): M43.10 - SPONDYLOLISTHESIS, SITE UNSPECIFIED SNOMED Code(s): 986301002 Time with Patient: Less than 30
[2017-11-07 16:57] LABS: Glucose,Whole Blood 228 mg/dL (75-99)
[2017-11-07 21:33] LABS: Glucose,Whole Blood 239 mg/dL (75-99)
[2017-11-07] MEDS ORDERED: INSULIN ASPART 100 UNIT/ML 1 ML 10 ML VIAL SQ ONE (22:13)
--- NOTE | 2017-11-08 00:23 | P.PN ---
Subjective Progress Note Date: 11/07/17 Principal diagnosis: Laminectomy Interval history:Patient is a 66-year-old female with a known history of hypertension, diabetes type 2 [id number], hyperlipidemia and severe grade 3 spondylolisthesis L5-S1 and degenerative disc disease and spinal stenosis was admitted to hospital for laminectomy and decompression with bilateral wide foraminotomy L5-S1. Patient tolerated the procedure well. Patient does complaining of some shooting down pain below the waistline. Otherwise currently denied any complaints of chest pain or shortness of breath. No nausea vomiting or abdominal pain. No headache or dizziness or lightheadedness. No fever no chills. 11/05/2017 complains of pain, unrelieved with oral agents agents; instructed to also use IV pain medication. Currently sitting up in chair, visiting with family. Positive flatus, no bowel movement. Patient states she is going to [facility] subacute rehab at discharge. Denies chest pain, palpitations or increasing shortness of breath. Denies lightheadedness or dizziness or focal deficits. 11/06/2017 Patient says that her right leg pain pain is better now. No fever no chills. No acute overnight issues. No complains of chest pain or shortness of breath. No nausea vomiting or abdominal pain. 11/07/2017 Patient is complaining of pain over the right eddy radiating down the leg. Otherwise no fever no chills no leukocytosis. Tolerating oral diet. No chest pain no shortness of breath. Back pain Pain is much improved at the surgical area. Current medications reviewed Objective - Vital Signs Vital signs: Vital Signs Temp 98.0 F 11/07/17 19:00 Pulse 88 11/07/17 19:00 Resp 17 11/07/17 19:00 BP 157/82 11/07/17 19:00 Pulse Ox 99 11/07/17 19:00 Intake & Output 11/07/17 11/07/17 11/08/17 06:59 18:59 06:59 Intake Total 1080 880 Balance 1080 880 Intake: Oral 1080 880 Other: Voiding Method Toilet # Voids 3 2 - Exam Patient is lying in the bed comfortably, no acute distress, awake alert and oriented.. HEENT: Normocephalic. Neck is supple. Pupils reactive. Nostrils clear. Oral cavity is moist. Ears reveal no drainage. Neck reveals no JVD, carotid bruits, or thyromegaly. CHEST EXAMINATION: Trachea is central. Symmetrical expansion. Lung hutchins clear to auscultation and percussion. CARDIAC: Normal S1, S2 with no gallops. No murmurs ABDOMEN: Soft. Bowel sounds normal. No organomegaly. No abdominal bruits. Extremities: reveal no edema. No clubbing or cyanosis Neurologically awake, alert, oriented x3 with well-coordinated movements. No focal deficits noted Skin: No rash or skin lesions. Psychiatric: Coperative. Nonsuicidal Musculoskeletal: L5-S1 surgery site intact and SY drain in place. No joint swelling or deformity. Normal range of motion. - Labs CBC & Chem 7: 11/04/17 06:55 11/04/17 06:55 Labs: Abnormal Lab Results - Last 24 Hours (Table) 11/07/17 11/07/17 11/07/17 Range/Units 06:52 11:08 16:50 POC Glucose (mg/dL) 204 H 225 H 228 H (75-99) mg/dL 11/07/17 Range/Units 21:31 POC Glucose (mg/dL) 239 H (75-99) mg/dL Assessment and Plan Assessment: Status post laminectomy and decompression L5-S1 Hypertension controlled. Continue with lisinopril and Lasix as per home dose Diabetes type 2. Osteoarthritis Hyperlipidemia DVT prophylaxis Plan: Patient will be continued on home blood pressure medications and metformin as well. Continue with Neurontin. Insulin sliding scale. Continue the pain management and bowel regimen. We'll follow closely. Further recommendations based on the clinical course. Thank you for your consult.
[2017-11-08] MEDS: GABAPENTIN 300 MG CAP PO SCH ×4 (00:39→21:13)
[2017-11-08 00:55] LABS: Glucose,Whole Blood 151 mg/dL (75-99)
[2017-11-08] MEDS: SODIUM CHLORIDE 0.9% 1,000 ML IV SCH ×2 (02:54→21:15)
[2017-11-08] MEDS: HYDROcodone/APAP 7.5-325MG 1 EACH TAB PO PRN ×3 (04:17→21:13)
[2017-11-08] MEDS: DIAZEPAM 5 MG TAB PO PRN ×3 (07:12→21:13)
[2017-11-08 07:24] VITALS: RESP 16
[2017-11-08 07:32] LABS: Glucose,Whole Blood 203 mg/dL (75-99)
[2017-11-08] MEDS: LISINOPRIL 10 MG TAB PO SCH (08:02)
[2017-11-08] MEDS: CALCIUM CARB-VIT D 500MG-200UN 1 EACH TAB PO SCH (08:02)
[2017-11-08] MEDS: metFORMIN 500 MG TAB PO SCH ×2 (08:03→18:00)
[2017-11-08] MEDS: FUROSEMIDE 20 MG TAB PO SCH (08:03)
[2017-11-08] MEDS: VITAMIN E (DL,TOCOPHERYL ACET) 400 UNIT CAP PO SCH (08:04)
[2017-11-08] MEDS: SENNOSIDES-DOCUSATE SODIUM 1 EACH TAB PO SCH (08:04)
--- NOTE | 2017-11-08 08:44 | P.PN ---
Progress Note - Text Progress Note Date: 11/08/17 Orthopedic Spine: Patient is a pleasant 66-year-old female who is seen and examined at the bedside following posterior lateral decompression and fusion performed last Wednesday. She states her back pain has been well-controlled. Patient states she has continued to have significant pain in the lower extremities postsurgically with mild improvement over the weekend. She states she has difficulty lifting her legs and performing hip flexion bilaterally independently due to her pain. She states her pain varies and radiates over the anterior thighs and down the anterior lower extremities. Sometimes the symptoms are greater in one lower extremity than the other. Today she states her pain is most significant over the right anterior eddy radiating to the top of the right foot. She has difficulty standing on the right lower extremity as she states she feels numbness in her foot around the ankle she feels unsteady. She is able to sense palpation of the right lower extremity without difficulty. She has has had an improvement in dorsiflexion, plantarflexion, little toes of the right lower extremity as compared to this past Wednesday. She states her symptoms are controlled while lying in bed but are exacerbated when her legs hanging off the side of bed or while she is sitting upright. She has had some difficulty getting out of bed due to her pain. She states she would be unable to ambulate on her own without assistance. Foley was increased to 7.5 mg/25 mg yesterday and Neurontin 600 mg 3 times a day was added yesterday. Since that time she states she has some improvement of her pain and states her pain is currently 8-9/10. She is voiding without difficulty. She has been able to ambulate to the restroom and has had 2 bowel movements. She continues to eat without difficulty. She states she has been able to increase her ambulation to some degree over the past several days. She continues to work with physical therapy. Currently does not complain of nausea, vomiting, fever, or chills. She does have a history of hypertension with elevated blood pressure prior to surgical intervention. She will be seen and examined by medicine. We discussed discharged to rehabilitation facility at discharge again this morning. Physical Exam Lumbar Fusion: Status post surgical day number 5 Patient is awake, alert, and oriented 3 Vital signs stable; patient is sitting comfortably in a bedside chair Good chest excursion with deep inspiration and expiration Abdomen soft nontender Dorsiflexion, plantarflexion, and extensor hallucis longus positive sustained on the bilaterally Difficulty with dorsiflexion, plantarflexion, and extensor hallucis longus on the right lower extremity against resistance due to pain but has had some improvement as compared to Wednesday; she is able to perform some slow active range of motion with the right lower extremity No signs or symptoms of DVT; no calf pain; Calves are soft pneumatic cuffs currently intact bilateral lower extremities Dressing is clean, dry, and intact; no erythema, purulence, or signs of infection No significant pain with palpation over the surgical site; no active drainage; dressing remains intact Neurovascularly intact bilaterally lower extremities Assessment: Posterior lateral decompression and fusion L5-S1 Low back pain Bilateral lower extremity radiculopathy on the right and left Reduced active range of motion with some improvement right lower extremity with dorsiflexion, plantarflexion, and flexion/extension of all toes of the right foot Hypertension Plan: 1. Ambulate as tolerated; work with Physical Therapy to increase mobilization 2. Continue pain control with IV and oral medications; Foley was increased to 7.5 mg/325 mg yesterday and Neurontin 600 mg was added. Patient is is had some improvement of her symptoms after the change in her medications. Patient may receive oral Foley, oral Neurontin, and IV Dilaudid as prescribed as needed for relief of her symptoms; pain control discussed with nursing in which we discussed it is okay for the patient received both IV and oral pain medications as prescribed as needed for control of her symptoms 3. We will plan to obtain x-rays lumbosacral spine with AP and lateral views for further evaluation 4. Dressing to remain intact 5. We will plan consultation with social work and occupational therapy; may plan for discharge to rehabilitation facility at discharge as early as tomorrow , 11/09/2017 6. Medical management can continue to manage patient for patient's other medical issues hypertension 7. We will continue to follow the patient closely; Patient will be discussed in detail with Dr. Carter Osman. We will adjust our plan of care accordingly 8. Patient can follow-up with Joe Singh PA-C or Dr. Carter Osman at [facility] in 2-3 weeks following discharge
[2017-11-08] MEDS ORDERED: methylPREDNISolone SOD SUCCI 125 MG/2 ML VIAL IV STA (09:01)
[2017-11-08] MEDS: ATORVASTATIN 20 MG TAB PO SCH (09:02)
[2017-11-08 11:15] LABS: Glucose,Whole Blood 239 mg/dL (75-99)
[2017-11-08] MEDS: INSULIN ASPART 100 UNIT/ML 1 ML 10 ML VIAL SQ SCH ×3 (12:55→21:12)
--- NOTE | 2017-11-08 13:13 | XR ---
EXAM TYPE: LUMBAR SPINE X RAY SERIES COMPARISON: 11/03/2017 HISTORY: Pain TECHNIQUE: 3 views are submitted. FINDINGS: Postsurgical changes are noted. Transpedicular screw at L5 appears to be laterally positioned relativ e to the vertebral body. This appears different than on her intraoperative image. The nurse called pebbles th the findings. Correlate for hardware malpositioning. Correlate clinically to determine is within n ormal limits. Appears to be grade 2 spondylolisthesis of L5 on S1. Curvature the spine seen. IMPRESSION: 1. Postsurgical changes. Transpedicular screw appears to be lateral to the expected location of the p edicle of L5. Correlate for positioning. Correlate for hardware malpositioning. Consider CT follow-up to assess for position of hardware. 2. Persistent grade 2 anterolisthesis L5 on S1.
[2017-11-08 14:02] LABS: Hemoglobin A1C 6.7 % (4.0-6.0)
--- NOTE | 2017-11-08 14:06 | CT ---
EXAMINATION TYPE: CT lumbar spine wo con DATE OF EXAM: 11/08/2017 1:46 PM COMPARISON: CT abdomen pelvis August 17, 2017 HISTORY: low back pain and Left leg weakness post op fusion. CT DLP: 1177 mGycm Automated exposure control for dose reduction was used. Unenhanced CT of the lumbar spine was performed. Bone and soft tissue window settings are submitted as well as coronal and sagittal reconstructions. 5 lumbar-type vertebra are redemonstrated. There is interval surgery with new posterior interpedicula r rods and screws transfixing L5 and S1 levels bilaterally. There is stable severe grade 2 anterolist hesis of L5 on S1 measuring 1.4 cm on sagittal image 22. There is advanced disc space narrowing with vacuum disc phenomenon and endplate sclerosis at this level. Vertebral body heights and disc space he ights above this are satisfactory. Axial images are grossly unremarkable up to L3-L4 level. Axial images at L4-L5 level show artifact from posterior fusion hardware. There is posterior decompre ssion. There is persistent facet arthropathy. Bilateral neural foramina remain patent on sagittal nir ges. Axial images at L5-S1 level show new bilateral interpedicular screws. Right screw transverses in clos e proximity to right S1 nerve on coronal image 31, axial image 83 and sagittal image 17 along the ant erior superior margin of sacral foramina. There is low lying cecum seen into right pelvis. There are diverticula in the sigmoid colon. There is stable 2.6 cm left adrenal heterogeneous. Low dense mass. This is unchanged from January 09, 2015 CT and is likely benign. IMPRESSION: Interval surgery L5-S1 level. Stable alignment with severe grade 2 anterolisthesis of L5 on S1. No si gnificant new finding seen to account for patient's left-sided radiculopathy type symptoms.
[2017-11-08 17:14] LABS: Glucose,Whole Blood 288 mg/dL (75-99)
--- NOTE | 2017-11-08 17:26 | PN ---
PROGRESS NOTE I am covering for Dr. Veliz. DATE OF SERVICE: 11/08/2017 This 66-year-old woman who was admitted with laminectomy decompression is improving significantly. Patient is still complaining of some pain at this time. Lumbar spine CT scan was done today which showed interval surgery and stable anterolisthesis. No chest pain. No palpitations. No fever. On exam, alert and oriented x3. Pulse 86, blood pressure 117/67, respiration 16, temperature 97.9, pulse ox 97% on room air. HEENT: Conjunctivae normal. NECK: No jugular venous distention. CARDIOVASCULAR SYSTEM: S1, S2 muffled. RESPIRATORY SYSTEM: Breath sounds diminished at the bases. No rhonchi. No crackles. ABDOMEN: Soft, non-tender. LEGS: No edema. No swelling. NERVOUS SYSTEM: No focal deficit. EXAMINATION OF BACK: Status post back surgery. LABS: Accu-Cheks 239, 151, 203 and 239. Otherwise, hemoglobin 11.5. ASSESSMENT: 1. Status post laminectomy decompression at L5-S1. 2. Hypertension. 3. Diabetes mellitus, type 2. 4. Degenerative joint disease. 5. Hyperlipidemia. 6. History of deep venous thrombosis prophylaxis. RECOMMENDATIONS AND DISCUSSION: I recommend to continue current medication, continue with symptomatic treatment. Otherwise at this time we will monitor blood sugars closely. Consistent-carb diet. Continue to monitor. Further recommendations to follow. The hemoglobin A1c is 6.7. Will increase the metformin to twice daily. Continue to monitor. Would also recommend a CBC and BMP in the a.m. Dr. Veliz will follow. MMODL / IJN: [id number] /
[2017-11-08 20:05] LABS: Glucose,Whole Blood 341 mg/dL (75-99)
[2017-11-09] MEDS: SODIUM CHLORIDE 0.9% 1,000 ML IV SCH (02:14)
[2017-11-09] MEDS: DIAZEPAM 5 MG TAB PO PRN ×2 (07:07→12:59)
[2017-11-09] MEDS: HYDROcodone/APAP 7.5-325MG 1 EACH TAB PO PRN ×2 (07:07→12:59)
[2017-11-09 07:25] VITALS: BP 125/81; PULSE 74; TEMP 97.7
[2017-11-09 07:25] LABS: Glucose,Whole Blood 183 mg/dL (75-99)
[2017-11-09 07:41] LABS: Basophils % (A) 0 %; Eosinophils # (A) 0.1 k/uL (0-0.7); Eosinophils % (A) 2 %; HCT 34.4 % (34.0-46.0); Lymphocytes # (A) 1.5 k/uL (1.0-4.8); Lymphocytes % (A) 20 %; MCH 30.9 pg (25.0-35.0); MCHC 32.1 g/dL (31.0-37.0); MCV 96.3 fL (80.0-100.0); Monocytes # (A) 0.4 k/uL (0-1.0); Monocytes % (A) 6 %; Neutrophils # (A) 5.3 k/uL (1.3-7.7); Neutrophils % (A) 70 %; Platelet Count 343 k/uL (150-450); RBC 3.57 m/uL (3.80-5.40); RDW 12.3 % (11.5-15.5); WBC 7.5 k/uL (3.8-10.6)
[2017-11-09 07:48] LABS: Anion Gap 13 mmol/L; Blood Urea Nitrogen 22 mg/dL (7-17); Calcium 9.7 mg/dL (8.4-10.2); Carbon Dioxide 26 mmol/L (22-30); Chloride 99 mmol/L (98-107); Glucose 186 mg/dL (74-99); Potassium 4.3 mmol/L (3.5-5.1); Sodium 138 mmol/L (137-145)
[2017-11-09] MEDS: INSULIN ASPART 100 UNIT/ML 1 ML 10 ML VIAL SQ SCH ×2 (08:09→12:59)
[2017-11-09] MEDS: LISINOPRIL 10 MG TAB PO SCH (08:09)
[2017-11-09] MEDS: SENNOSIDES-DOCUSATE SODIUM 1 EACH TAB PO SCH (08:09)
[2017-11-09] MEDS: ATORVASTATIN 20 MG TAB PO SCH (08:10)
[2017-11-09] MEDS: GABAPENTIN 300 MG CAP PO SCH (08:10)
[2017-11-09] MEDS: FUROSEMIDE 20 MG TAB PO SCH (08:10)
[2017-11-09] MEDS: metFORMIN 500 MG TAB PO SCH (08:10)
[2017-11-09] MEDS: VITAMIN E (DL,TOCOPHERYL ACET) 400 UNIT CAP PO SCH (08:10)
[2017-11-09] MEDS: CALCIUM CARB-VIT D 500MG-200UN 1 EACH TAB PO SCH (08:10)
--- NOTE | 2017-11-09 09:20 | P.DS ---
Providers Date of admission: 11/03/17 10:21 Expected date of discharge: 11/09/17 Attending physician: Paris Osman Consults: 11/03/17 16:26 Consult Physician Routine Consulting Provider: Dewayne Veliz Consult Reason/Comments: Medical management Do you want consulting provider notified?: Yes Primary care physician: Dewayne Leong Jose Alfredo - Discharge Diagnosis(es) (1) Spondylolisthesis at L5-S1 level Current Visit: Yes Status: Acute (2) Spondylolysis of lumbosacral region Current Visit: Yes Status: Acute (3) Low back pain Current Visit: Yes Status: Acute (4) Radiculopathy with lower extremity symptoms Current Visit: Yes Status: Acute (5) Spinal stenosis of lumbosacral region Current Visit: Yes Status: Acute (6) DDD (degenerative disc disease), lumbosacral Current Visit: Yes Status: Acute Hospital Course: This is a pleasant 66-year-old female who presented with L5-S1 severe grade 3 spondylolisthesis, spondylolysis, degenerative disc disease, and spinal canal stenosis with lower extremity radiculopathy and low back pain who failed outpatient conservative therapy. She was admitted for a posterior lateral decompression and fusion at L5-S1. Patient initially was significantly slow in her mobility and control of her symptoms. Over the past several days she has had some improvement of her symptoms. He feels stronger in her right lower extremity. She has been ambulating with the assistance of a walker. She has been eating and voiding without significant difficulty. She does continue to have pain radiating over the right anterior eddy towards the top of the foot. Today she states her most significant pain is pain towards her left medial upper thigh and groin. She denies difficulty with the left hip. She has been experiencing this pain over the past couple days as well. Her medicines were adjusted over the weekend to [place] 7.5 mg/325 mg 1-2 tabs every 4 hours for pain and added Neurontin 600 mg 3 times a day. She also received 1 dose of Solu -Medrol 60 mg IV yesterday. Since that time she does feel her symptoms have improved. She is not experiencing significant back pain. X-rays the lumbar spine and CT of the lumbar spine were performed yesterday which showed her hardware appears to be maintained postsurgically without acute change. Patient does not feel she would be able to be discharged home as she does not have extensive help at home and does feel rehabilitation would be her best option. We will plan for discharge to [facility] today, 2017. Condition on day of discharge stable. Patient was cleared preoperatively for surgery by Dr. Veliz. Patient currently denies any nausea, vomiting, fever, or chills. Patient is eating and voiding freely without difficulty. Patient may shower Tegaderm dressing intact. Patient may remove Tegaderm dressing in 2 days and shower without a dressing at that time. Patient should keep Steri- Strips intact and allow them to fall off naturally. Patient should refrain from driving until at least after their first follow-up appointment in the office. Patient should avoid excessive bending, lifting, and twisting; no lifting greater than 10 pounds. Patient is given a prescription for [place] 7.5 mg/325 mg 1 tab every 4 hours as needed for pain, dispense #90, Flexeril 10 mg 1 tab every 8 hours as needed for muscle spasm dispense #90, and Neurontin 600 mg 1 tab every 8 hours as needed for neuropathy, dispensed #90 at discharge. We will plan to discontinue tramadol and Motrin. She will avoid anti- inflammatories over the next 6 weeks postsurgically. She may resume other previously home scheduled medications. We'll also be given a prescription for a walker to aid in ambulation. Physical Exam on day of discharge: Patient is awake, alert, and oriented 3 Vital signs stable Good chest excursion with deep inspiration and expiration Abdomen soft nontender No signs or symptoms of DVT; no calf pain Extensor hallucis longus, plantarflexion, and dorsiflexion positive sustained bilateral lower extremities Some difficulty with performing hip flexion with the left lower extremity Incision is clean, dry, and intact; no erythema, purulence, or signs of infection No significant pain with palpation over the surgical site Tegaderm dressing and non-stick Telfa intact Patient Condition at Discharge: Stable Plan - Discharge Summary Discharge Rx Participant: Yes New Discharge Prescriptions: New Cyclobenzaprine [Flexeril] 10 mg PO TID PRN #90 tab PRN Reason: Muscle Spasm Gabapentin [Neurontin] 600 mg PO TID PRN #90 tab PRN Reason: Pain HYDROcodone/APAP 7.5-325MG [[place] 7.5-325] 1 each PO Q4HR PRN #90 tab PRN Reason: Pain Continue Biotin 300 mcg PO DAILY Vitamin E (Dl,Tocopheryl Acet) [Vitamin E] 400 unit PO DAILY Lisinopril [Prinivil] 10 mg PO DAILY Magnolia-3/Dha/Epa/Fish Oil [Fish Oil 500 mg Softgel] 1 cap PO DAILY metFORMIN HCL [Glucophage] 500 mg PO QAM Furosemide [Lasix] 20 mg PO DAILY Atorvastatin [Lipitor] 20 mg PO DAILY Calcium Carbonate/Vitamin D3 [Calcium 600-Vit D3 400 Caplet] 1 tab PO DAILY Discontinued traMADol HCL [Ultram] 50 mg PO Q6H PRN PRN Reason: Pain Ibuprofen [Motrin] 800 mg PO Q6H PRN PRN Reason: Pain Discharge Medication List Biotin 300 mcg PO DAILY 04/13/17 [History] Lisinopril [Prinivil] 10 mg PO DAILY 04/13/17 [History] [place]olia-3/Dha/Epa/Fish Oil [Fish Oil 500 mg Softgel] 1 cap PO DAILY 04/13/17 [ History] Vitamin E (Dl,Tocopheryl Acet) [Vitamin E] 400 unit PO DAILY 04/13/17 [History] Atorvastatin [Lipitor] 20 mg PO DAILY 10/26/17 [History] Calcium Carbonate/Vitamin D3 [Calcium 600-Vit D3 400 Caplet] 1 tab PO DAILY 03/07 [History] Furosemide [Lasix] 20 mg PO DAILY 10/26/17 [History] metFORMIN HCL [Glucophage] 500 mg PO QAM 10/26/17 [History] Cyclobenzaprine [Flexeril] 10 mg PO TID PRN #90 tab 11/09/17 [Rx] Gabapentin [Neurontin] 600 mg PO TID PRN #90 tab 11/09/17 [Rx] HYDROcodone/APAP 7.5-325MG [[place] 7.5-325] 1 each PO Q4HR PRN #90 tab 11/09/17 [ Rx] Follow up Appointment(s)/Referral(s): Dewayne Veliz MD [Primary Care Provider] - 11/16/17 10:20 am Joe Singh PAC [PHYSICIAN ACCESS REP] - 11/22/17 10:30 am (Patient may follow-up with Joe Singh PA-C or Dr. Carter Osman at [facility] in 2-3 weeks following discharge. ) [facility], [NON-STAFF] - As Needed Activity/Diet/Wound Care/Special Instructions: 1. Patient may shower with Tegaderm dressing intact. 2. Patient may remove Tegaderm dressing in 3 days and shower without a dressing at that time. 3. Patient should keep Steri-Strips intact and allow them to fall off naturally. 4. Patient should refrain from driving until at least after their first follow- up appointment in the office. 5. Patient should avoid excessive bending, twisting, and lifting; no lifting greater than 10 pounds 6. Take medications as prescribed 7. Do not soak in tub 8. Regular Diet Discharge Disposition: TRANSFER TO SNF/ECF
[2017-11-09 11:29] LABS: Glucose,Whole Blood 265 mg/dL (75-99)
--- NOTE | 2017-11-09 11:35 | P.PN ---
Subjective Patient is post laminectomy decompression L5-S1. Continues with left leg weakness radiculopathy to right leg states back pain is improved Objective - Vital Signs Vital signs: Vital Signs Temp 97.7 F 11/09/17 07:00 Pulse 74 11/09/17 07:00 Resp 16 11/09/17 07:00 BP 125/81 11/09/17 07:00 Pulse Ox 98 11/09/17 07:00 Intake & Output 11/08/17 11/09/17 11/09/17 18:59 06:59 18:59 Intake Total 0 Balance 0 Intake: Intake, IV Titration 0 Amount Sodium Chloride 0.9% 1, 0 000 ml @ 75 mls/hr IV . [id number] ALTHEA Rx#:[id number] Other: Voiding Method Toilet Toilet # Voids 2 1 # Bowel Movements 1 - Constitutional General appearance: Present: mild distress - EENT Eyes: Present: PERRLA Ears: bilateral: bulging - Neck Neck: Present: normal ROM - Respiratory Respiratory: bilateral: CTA - Cardiovascular Rhythm: regular - Gastrointestinal General gastrointestinal: Present: soft - Integumentary Integumentary: Present: normal - Neurologic Neurologic: Present: CNII-XII intact - Musculoskeletal Musculoskeletal Comment(s): Left leg weakness - Psychiatric Psychiatric: Present: A&O x's 3, appropriate affect, intact judgment & insight - Labs CBC & Chem 7: 11/09/17 06:59 11/09/17 06:59 Labs: Abnormal Lab Results - Last 24 Hours (Table) 11/04/17 11/08/17 11/08/17 Range/Units 06:55 17:08 20:02 RBC (3.80-5.40) m/uL Hgb (11.4-16.0) gm/dL BUN (7-17) mg/dL Glucose (74-99) mg/dL POC Glucose (mg/dL) 288 H 341 H (75-99) mg/dL Hemoglobin A1c 6.7 H (4.0-6.0) % 11/09/17 11/09/17 11/09/17 Range/Units 06:59 06:59 07:02 RBC 3.57 L (3.80-5.40) m/uL Hgb 11.0 L (11.4-16.0) gm/dL BUN 22 H (7-17) mg/dL Glucose 186 H (74-99) mg/dL POC Glucose (mg/dL) 183 H (75-99) mg/dL Hemoglobin A1c (4.0-6.0) % 11/09/17 Range/Units 11:25 RBC (3.80-5.40) m/uL Hgb (11.4-16.0) gm/dL BUN (7-17) mg/dL Glucose (74-99) mg/dL POC Glucose (mg/dL) 265 H (75-99) mg/dL Hemoglobin A1c (4.0-6.0) % Assessment and Plan Plan: Assessment Post laminectomy decompression L5-S1 History of hypertension Diabetes type 2 Degenerative joint disease Hyperlipidemia Plan patient stable for transfer to [facility] for rehab
== END 2017-11-09 13:45 | DRG 460 ==
LOC: 2ORMAIN 10:21 → 3SUR 16:39
PROVIDERS: ADMIT Orthopaedic Surgery Orthopaedic Surgery of the Spine; ATTEND Orthopaedic Surgery Orthopaedic Surgery of the Spine
PROC: 0ST40ZZ Resection of Lumbosacral Disc, Open Approach (ICD-10-PCS; 2017-11-03)
PROC: 4A11X4G Monitoring of Peripheral Nervous Electrical Activity, Intraoperative, External Approach (ICD-10-PCS; 2017-11-03)
PROC: 0SG3071 Fusion of Lumbosacral Joint with Autologous Tissue Substitute, Posterior Approach, Posterior Column, Open Approach (ICD-10-PCS; principal; 2017-11-03 12:20)
DX: M43.17 Spondylolisthesis, lumbosacral region (principal); M41.9 Scoliosis, unspecified; M48.07 Spinal stenosis, lumbosacral region; M47.27 Other spondylosis with radiculopathy, lumbosacral region; E11.9 Type 2 diabetes mellitus without complications; M51.17 Intervertebral disc disorders with radiculopathy, lumbosacral region; I10 Essential (primary) hypertension; M19.91 Primary osteoarthritis, unspecified site; E78.5 Hyperlipidemia, unspecified; K80.20 Calculus of gallbladder without cholecystitis without obstruction; Z79.84 Long term (current) use of oral hypoglycemic drugs; Z79.899 Other long term (current) drug therapy; Z87.442 Personal history of urinary calculi; Z90.710 Acquired absence of both cervix and uterus; Z87.891 Personal history of nicotine dependence; Z98.49 Cataract extraction status, unspecified eye
CPT/HCPCS: 72020; 72100; 72131; 80048; 83036; 85025; 86850; 86891; 86900; 86901; 94760

== ENCOUNTER → 2018-04-22 | Outpatient (CLI) | payer MEDICARE, BC ==
--- NOTE | 2018-04-22 16:56 | BD ---
EXAMINATION TYPE: Axial Bone Density DATE OF EXAM: 04/22/2018 COMPARISON: 04.03.2016 CLINICAL HISTORY: 67 YR OLD FEMALE....ICD-10 CODE: Z78.0 POST MENOPAUSAL W/O HRT Height: 62.4 Weight: 161 FRAX RISK QUESTIONS: Secondary Osteoporosis: YES 3. Menopause before 45: YES AT AGE 38 RISK FACTORS HISTORY OF: Surgery to Spine FUSION L5 SI When: 2017 Family History of Osteoporosis: YES, HER MOTHER, NO FX OF HIP Active: NOT RIGHT NOW Diet low in dairy products/other sources of calcium: NO Postmenopausal woman: YES, AT AGE 38 YRS OLD Lost more than 2 inches in height since high school: YES Frequent falls: UNSTEADY MEDICATIONS: Osteoporosis Medications: YES, FOSAMAX FOR ABOUT 3 YRS Additional Medications: CALCIUM AND VIT D, BP MEDS, METFORMIN, STATIN FOR CHOLESTEROL , Additional History: DIABETIC, ARTHRITIC, EXAM MEASUREMENTS: Bone mineral densitometry was performed using the [employer] System. Bone mineral density about the R hip (g/cm2): 0.845 Bone mineral density about the L hip (g/cm2): 0.808 T Score values are as follows: -----R Neck: -1.7 -----L Neck: -2.0 -----R Total: -1.3 -----L Total: -1.6 Bone mineral density has: Increased 2.1% since study of: 04.03.2016 Bone mineral density about the L Wrist (g/cm2): 0.535 T Score values are as follows: -----Dist. R+U: -1.3 -----Prox. R+U: -1.1 -----Radius total: -1.8 Bone mineral density FIRST SCAN OF LT FOREARM FRAX%s: THERE IS A 11.5% CHANCE OF A MAJOR OSTEOPOROTIC FX AND A 2.1% FOR HIP FX.....PROBABILITY O F FX IN 10 YRS TIME IMPRESSION: Osteopenia (T Score between -2.5 and -1). There is slightly increased risk of fracture and the patient may be considered for treatment. Re-Screen 2-5 years. NOTE: T-SCORE=SD OF THE YOUNG ADULT MEAN.
--- NOTE | 2018-04-25 08:31 | MM ---
Reason for exam: screening (asymptomatic). Last mammogram was performed 1 year ago. History: Patient history of other cancer. Physical Findings: A clinical breast exam by your physician is recommended on an annual basis and results should be correlated with mammographic findings. MG 3D Screening Mammo W/Cad Bilateral CC and MLO view(s) were taken. Prior study comparison: April 07, 2017, bilateral MG 3d screening mammo w/cad. April 03, 2016, bilateral MG 3d screening mammo w/cad. There are scattered fibroglandular densities. No suspicious abnormality. No significant changes when compared with prior studies. ASSESSMENT: Negative, BI-RAD 1 RECOMMENDATION: Routine screening mammogram of both breasts in 1 year.
== END | disposition home or self-care (01) ==
LOC: RADMAMWWP 09:47
PROVIDERS: ATTEND Family Medicine
DX: Z12.31 Encounter for screening mammogram for malignant neoplasm of breast (principal); M85.80 Other specified disorders of bone density and structure, unspecified site; Z78.0 Asymptomatic menopausal state
CPT/HCPCS: 77063; 77067; 77080

== ENCOUNTER → 2019-01-17 | Outpatient (CLI) | payer MEDICARE, BC ==
--- NOTE | 2019-01-17 12:06 | XR ---
EXAM TYPE: LUMBAR SPINE X RAY SERIES COMPARISON: 11/08/2017 HISTORY: Pain TECHNIQUE: 3 views are submitted. FINDINGS: Postsurgical changes are noted. Transpedicular screw at L5 appears to be laterally positioned relativ e to the vertebral body. This appears different than on her intraoperative image. The nurse called pebbles th the findings. Correlate for hardware malpositioning. Correlate clinically to determine is within n ormal limits. Appears to be grade 2 spondylolisthesis of L5 on S1. Grade 1 anterolisthesis L4 on L5 n ot excluded. IMPRESSION: 1. Postsurgical changes. Transpedicular screw appears to be lateral to the expected location of the p edicle of L5. Correlate for positioning. Correlate for hardware malpositioning. Finding is similar to the prior exam. 2. Persistent grade 2 anterolisthesis L5 on S1.
--- NOTE | 2019-01-17 12:21 | XR ---
EXAMINATION TYPE: XR ankle complete RT DATE OF EXAM: 01/17/2019 COMPARISON: NONE HISTORY: Pain FINDINGS: Three views of the ankle demonstrate the ankle mortise to be intact and symmetric. The joint spaces are preserved. The osseous structures are intact. IMPRESSION: 1. No definite acute fracture or dislocation, if symptoms persist follow-up study in 7 to 10 days wou ld be suggested.
== END | disposition home or self-care (01) ==
LOC: RADXRMAIN 11:11
PROVIDERS: ATTEND Family Medicine
DX: M43.17 Spondylolisthesis, lumbosacral region (principal); M25.571 Pain in right ankle and joints of right foot; Z98.890 Other specified postprocedural states
CPT/HCPCS: 72100

== ENCOUNTER → 2019-05-23 | Outpatient (CLI) | payer MEDICARE, BC ==
--- NOTE | 2019-05-24 09:50 | MM ---
Reason for exam: screening (asymptomatic). Last mammogram was performed 1 year and 1 month ago. History: Patient history of other cancer. Physical Findings: A clinical breast exam by your physician is recommended on an annual basis and results should be correlated with mammographic findings. MG 3D Screening Mammo W/Cad Bilateral CC and MLO view(s) were taken. Prior study comparison: April 22, 2018, bilateral MG 3d screening mammo w/cad. April 07, 2017, bilateral MG 3d screening mammo w/cad. There are scattered fibroglandular densities. No suspicious abnormality. No significant changes when compared with prior studies. ASSESSMENT: Negative, BI-RAD 1 RECOMMENDATION: Routine screening mammogram of both breasts in 1 year.
== END ==
LOC: RADMAMWWP 09:38
PROVIDERS: ATTEND Family Medicine
DX: Z12.31 Encounter for screening mammogram for malignant neoplasm of breast (principal)
CPT/HCPCS: 77063; 77067

== ENCOUNTER → 2020-08-13 | Outpatient (CLI) | payer MEDICARE, BC ==
--- NOTE | 2020-08-13 18:17 | BD ---
EXAMINATION TYPE: Axial Bone Density DATE OF EXAM: 08/13/2020 COMPARISON: 04/22/2018 CLINICAL HISTORY: Postmenopausal screening Height: 5 FT 3 1/2 IN Weight: 169 FRAX RISK QUESTIONS: Alcohol (3 or more units per day): NO Family History (Parent hip fracture): NO Glucocorticoids (More than 3mos): NO (Ex: prednisone, prednisolone, methylprednisolone, dexamethasone, and hydrocortisone). History of Fracture in Adulthood: NO Secondary Osteoporosis: 1. Type 1 Diabetes: NO 2. Hyperthyroidism: NO 3. Menopause before 45: PART HYST AGE 38 4. Malnutrition: NO 5. Chronic liver disease: NO Rheumatoid Arthritis: NO Current Tobacco Use: NO RISK FACTORS HISTORY OF: Surgery to Spine/Hip(right/left)/Wrist (right/left): SPINE When: 2018 Family History of Osteoporosis: UNSURE Active: YES Diet low in dairy products/other sources of calcium: NO Postmenopausal woman: PART [facility] AGE 38 Take estrogen and/or progesterone medications: NO Lost more than 2 inches in height since high school: YES MEDICATIONS: Additional Medications: METFORMIN, LISINOPRIL, ZYRTEC, NEURONTIN, BIOTIN, MOBIC, LASIX, Additional History: EXAM MEASUREMENTS: Bone mineral density about the R hip (g/cm2): 0.806 Bone mineral density about the L hip (g/cm2): 0.769 T Score values are as follows: -----R Neck: -1.7 -----L Neck: -1.9 -----R Total: -1.1 -----L Total: -1.4 Bone mineral density has: INCREASED 3.5 % since study of: 2017 Bone mineral density about the L Wrist (g/cm2): 0.584 T Score values are as follows: -----Dist. R+U: -2.0 -----Prox. R+U: -1.2 -----Radius total: -1.5 Bone mineral density has: DECREASED -0.6 % since study of: 2018 IMPRESSION: Osteopenia (T Score between -2.5 and -1). There is slightly increased risk of fracture and the patient may be considered for treatment. Re-Screen 2-5 years. NOTE: T-SCORE=SD OF THE YOUNG ADULT MEAN.
--- NOTE | 2020-08-14 09:21 | MM ---
Reason for exam: screening (asymptomatic). Last mammogram was performed 1 year and 3 months ago. History: Patient history of other cancer. Physical Findings: A clinical breast exam by your physician is recommended on an annual basis and results should be correlated with mammographic findings. MG 3D Screening Mammo W/Cad Bilateral CC and MLO view(s) were taken. Prior study comparison: May 23, 2019, bilateral MG 3d screening mammo w/cad. April 22, 2018, bilateral MG 3d screening mammo w/cad. There are scattered fibroglandular densities. There is no discrete abnormality. No significant changes when compared with prior studies. ASSESSMENT: Negative, BI-RAD 1 RECOMMENDATION: Routine screening mammogram of both breasts in 1 year.
== END | disposition home or self-care (01) ==
LOC: RADMAMWWP 08:36
PROVIDERS: ATTEND Family Medicine
DX: Z12.31 Encounter for screening mammogram for malignant neoplasm of breast (principal); M85.80 Other specified disorders of bone density and structure, unspecified site; Z78.0 Asymptomatic menopausal state
CPT/HCPCS: 77063; 77067; 77080

== ENCOUNTER 2021-01-10 05:39 | Day surgery (SDC) | payer MEDICARE, BC ==
[2021-01-08 14:02] VITALS: BMI 29.0
[2021-01-10] MEDS ORDERED: LACTATED RINGERS 1,000 ML IV SCH (05:41)
[2021-01-10] MEDS ORDERED: ONDANSETRON 4 MG/2 ML VIAL IVP ONE (05:41)
[2021-01-10] MEDS ORDERED: MIDAZOLAM 2 MG/2 ML VIAL IV PRN (05:41)
[2021-01-10] MEDS ORDERED: DEXAMETHASONE SOD PHOSPHATE 4 MG/ML 1 ML VIAL IV ONE (05:41)
[2021-01-10] MEDS ORDERED: LIDOCAINE 1% (10MG/ML) FOR IV START INTRADERMA ONE (06:46)
[2021-01-10 06:49] LABS: Glucose,Whole Blood 157 mg/dL (75-99)
[2021-01-10] MEDS ORDERED: fentaNYL (PF) 50 MCG/ML 2 ML AMP IV ONE (06:53)
[2021-01-10] MEDS ORDERED: HYDROmorphone 0.5 MG/0.5 ML SYRINGE IVP PRN (07:00)
[2021-01-10] MEDS ORDERED: ROPIVACAINE 5 MG/ML 30 ML VIAL ONE (07:20)
[2021-01-10] MEDS ORDERED: DEXAMETHASONE SOD PHOSPHATE 4 MG/ML 1 ML VIAL ONE (07:20)
[2021-01-10] MEDS ORDERED: fentaNYL (PF) 50 MCG/ML 2 ML AMP ONE (07:20)
[2021-01-10] MEDS ORDERED: ePHEDrine SULFATE/0.9% NACL/PF 50 MG/5 ML SYRINGE IV ONE (07:20)
[2021-01-10] MEDS ORDERED: LIDOCAINE 1% INJ 10MG/ML (20 ML MDV) ONE (07:20)
[2021-01-10] MEDS ORDERED: WATER FOR INJECTION, STERILE 10 ML VIAL IV ONE (07:20)
[2021-01-10] MEDS ORDERED: PROPOFOL 10 MG/ML 20 ML VIAL IV ONE (07:20)
[2021-01-10] MEDS ORDERED: MIDAZOLAM 2 MG/2 ML VIAL ONE (07:20)
[2021-01-10] MEDS ORDERED: ceFAZolin 1,000 MG in SODIUM CHLORIDE 0.9% 1,000 ML IRRIGATION ONE (07:51)
--- NOTE | 2021-01-10 08:02 | P.ANPRN ---
Procedure Note - Anesthesia - Nerve Block Performed Right Adductor Canal Single Time Out Performed: Yes Date of Procedure: 01/10/21 Procedure Start Time: 06:53 Procedure Stop Time: 07:01 Location of Patient: PreOp Indication: Requested by Surgeon Specifically requested for management of pain by DrPatricia: Abrahan Montesinos Sedation Type: Sedate with meaningful contact maintained Preparation: Sterile Prep Position: Supine Needle Types: Pajunk Needle Gauge: 21 Ultrasound used to visualize needle placement: Yes Ultrasound used to observe medication spread: Yes Injectate: 0.5% Ropivacaine (see comment for volume) (15 ml plus 5 ml 0.9 % NS plus decadrone 4 mg) Blood Aspirated: No Pain Paresthesia on Injection Noted: No Resistance on Injection: Normal Image Stored and Saved: Yes Events: Uneventful and Well Tolerated
--- NOTE | 2021-01-10 08:14 | P.ANPRN ---
Procedure Note - Anesthesia - Nerve Block Performed Right Popliteal Single Time Out Performed: Yes Date of Procedure: 01/10/21 Procedure Start Time: 07:01 Procedure Stop Time: 07:06 Location of Patient: PreOp Indication: Requested by Surgeon Specifically requested for management of pain by DrPatricia: Abrahan Montesinos Sedation Type: Sedate with meaningful contact maintained Preparation: Sterile Prep Position: Left Lateral Needle Types: Pajunk Needle Gauge: 21 Ultrasound used to visualize needle placement: Yes Ultrasound used to observe medication spread: Yes Injectate: 0.5% Ropivacaine (see comment for volume) (15 ml plus 0.9% ns plus dexamethason 4 mg) Blood Aspirated: No Pain Paresthesia on Injection Noted: No Resistance on Injection: Normal Image Stored and Saved: Yes Events: Uneventful and Well Tolerated
[2021-01-10 08:54] VITALS: TEMP 97.4
--- NOTE | 2021-01-10 08:59 | P.OP ---
Date of Procedure: 01/10/21 Preoperative Diagnosis: 1. Right ankle instability 2. Ruptured peroneus brevis tendon right ankle 3. Cyst of left third toe Postoperative Diagnosis: 1. Same 2. Same 3. Gouty tophi left third toe Procedure(s) Performed: 1. Secondary repair right lateral ankle ligaments\ 2. Open repair right peroneus brevis tendon 3. Excision of gouty tophi left third toe Implants: 1. 1 Arthrex internal brace 2. 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 She also had a painful cyst-like lesion on the dorsal aspect of the left third toe Operative Findings: 1. Split longitudinal tear of the peroneus brevis tendon 2. Attenuation of lateral ankle ligaments 3. Chalky area deposit on the left third toe Description of Procedure: Prior to the patient being brought to the operating room anesthesia administered a right lower extremity nerve block under ultrasonic guidance and mild sedation. The patient was then brought into the operative room placed on table supine position. Timeout was taken to confirm correct patient device, correct procedure, and correct site of surgery. When everybody in the room was in agreement the patient was placed under general anesthetic. A well-padded tourniquet was placed on the right midcalf keeping 3-4 inches distal to the fibular neck. A bump was placed underneath the right hip to internally rotate the right leg. Both feet were then prepped and draped in usual manner. The right leg was exsanguinated the tourniquet inflated to 250 mmHg. A straight linear incision was made over the lateral malleolus and curved slightly anterior once approached the tip of the malleolus. Incision was deepened down to the subcutaneous layer being careful to identify, avoid, and retract any neurovascular structures and cauterize any bleeding vessels. Blunt dissection was continued through the subcutaneous layer both anterior posteriorly to expose both surgical sites. The peroneal tendon sheath was then entered bluntly and then incised off the posterior aspect of the lateral malleolus exposing both the peroneal tendons. The peroneal tendons were delivered in the surgical field and inspected. The Proteus longus tendon did not show any pathology. However the Proteus brevis didn't show split thickness longitudinal tear. The peritenon was stripped off the posterior surface of the peroneus brevis. 4-0 FiberWire was then utilized to re-tubularize the peroneus brevis tendon. Once completed both tendons were placed back in the peroneal groove of the lateral malleolus. Ankle was taken through range of motion and both tendon slid freely through the area. The wound is irrigated with antibiotic saline. The peroneal tendon sheath and retinaculum were repaired with 0 Vicryl. Then attention was directed to the anterior lateral aspect of the right ankle. Incision was made to the capsular structures off the anterior surface the lateral malleolus. The cortical bone was removed off the anterior surface the lateral malleolus to help facilitate tissue re-adhesion. With the ankle held in dorsiflexion the body of the talus and the lateral aspect was palpated where it met the junction with the neck of the talus. Small stab incision was made to the soft tissue and dissected down to level of the bone. The drill bit for the 4.75 mm anchor was then inserted and advanced utilizing proper technique. The hole was tapped and then the 4.75 swivel lock anchor inserted and advanced to proper depth. The suture attached to the anchor was then set aside. A second 3.4 mm drill hole was made in the lateral malleolus for the 3.5 mm anchor. Then drill holes for the fiber Ritchie anchors were made one inferior and one superior to the 3.4 mm drill hole. Anchors were inserted and impacted utilizing standard technique. Inserters were removed and then tension placed on the suture for lock them in place. The wound is irrigated thoroughly with antibiotic saline. The suture on the fiber Ritchie anchors was then utilized to oversew the lateral ankle ligament capsular structures back to the anterior surface of the lateral malleolus. The sutures are tied while holding the ankle maximally dorsiflexed and everted. Then the suture arms for the internal brace were fed through the 3.5 mm swivel lock anchor which was then aligned with the drill hole lateral malleolus and then utilizing proper tensioning techniques and keeping the ankle in neutral inversion and eversion as well as mild gravity equinus, the anchor was inserted locking the suture in place. The fiber Rock anchor suture was then used to sew the soft tissue flap lateral malleolus over the repair site in a pants over vest fashion. The ankle was taken through range of motion and tested for stability: There is no evidence of inversions instability or anterior d rawer. Range of motion was smooth without crepitation. Subcu closure was then done with 4-0 Monocryl and skin closure done with 3-0 StrataFix in a running subcuticular manner. Dermal glue was applied Lunder dry. Then Steri-Strips and a dry sterile dressing applied to the right ankle. The tourniquet was released and capillary refill return to all digits on the right foot. Attention then directed to the left third digit where a small transverse incision was made over the cystlike structure over the distal interphalangeal joint. Incision was deepened through the skin down to the saphenous layer where a white chalky material was immediately identified. His before meals able to be dissected from surrounding soft tissue and excised. A portion will be sent to pathology for evaluation. The rest of this material was then sharply divided until very well remained. The material was likely a gouty tophus. The wound is thoroughly irrigated and then repaired with 3-0 nylon. Nonadherent gauze and dry sterile dressing applied left foot. The patient tolerated above procedure and anesthesia well which recovery vital signs stable.
[2021-01-10 09:01] LABS: Glucose,Whole Blood 219 mg/dL (75-99)
[2021-01-10 09:03] VITALS: RESP 16
[2021-01-10 09:42] LABS: Glucose,Whole Blood 239 mg/dL (75-99)
[2021-01-10] MEDS ORDERED: HYDROcodone/APAP 5-325MG 1 EACH TAB ONE (09:55)
[2021-01-10] MEDS ORDERED: HYDROcodone/APAP 5-325MG 1 EACH TAB PO ONE (09:55)
[2021-01-10] MEDS ORDERED: INSULIN ASPART (NovoLOG) 100 UNIT/ML VIAL SQ ONE (10:05)
[2021-01-10 10:47] LABS: Glucose,Whole Blood 269 mg/dL (75-99)
[2021-01-10 11:24] VITALS: BP 139/75; PULSE 78
== END 2021-01-10 11:24 | disposition home or self-care (01) ==
LOC: OR 05:39
PROVIDERS: ATTEND Podiatrist
DX: S96.811A Strain of other specified muscles and tendons at ankle and foot level, right foot, initial encounter (principal); X58.XXXA Exposure to other specified factors, initial encounter; M1A.9XX1 Chronic gout, unspecified, with tophus (tophi); Z97.3 Presence of spectacles and contact lenses; Z90.710 Acquired absence of both cervix and uterus; Z98.890 Other specified postprocedural states; Z83.3 Family history of diabetes mellitus; Z82.49 Family history of ischemic heart disease and other diseases of the circulatory system; Z87.891 Personal history of nicotine dependence; Z79.84 Long term (current) use of oral hypoglycemic drugs; Z79.1 Long term (current) use of non-steroidal anti-inflammatories (NSAID); Z79.891 Long term (current) use of opiate analgesic; Z79.899 Other long term (current) drug therapy
CPT/HCPCS: 64447; 64445; 76942; 88305; 28200; C1713 ×2; J2250; J1100; J0690 ×2; J2405; J2001; J3010; J2795; J2704

== ENCOUNTER → 2021-03-31 | Outpatient (CLI) | payer MEDICARE, BC ==
--- NOTE | 2021-03-31 12:35 | US ---
EXAMINATION TYPE: US venous doppler duplex LE DATE OF EXAM: 03/31/2021 12:25 PM COMPARISON: NONE CLINICAL HISTORY: R60.0 Localized edema lower extremities. swelling bilaterally, no h/o dvt SIDE PERFORMED: Bilateral TECHNIQUE: The lower extremity deep venous system is examined utilizing real time linear array sonog joanna with graded compression, doppler sonography and color-flow sonography. VESSELS IMAGED: Common Femoral Vein Deep Femoral Vein Greater Saphenous Vein * Femoral Vein Popliteal Vein Proximal Calf Veins (* superficial vessels) Right Leg: Negative for DVT Left Leg: Negative for DVT IMPRESSION: Grayscale, color doppler, spectral doppler imaging performed of the deep veins of the lo wer extremities.
== END | disposition home or self-care (01) ==
LOC: RADUSWWP 11:55
PROVIDERS: ATTEND Family Medicine
DX: R60.0 Localized edema (principal)
CPT/HCPCS: 93970

== ENCOUNTER → 2021-07-31 | Outpatient (CLI) | payer MEDICARE, BC ==
--- NOTE | 2021-07-31 09:08 | US ---
EXAMINATION TYPE: US abdomen complete DATE OF EXAM: 07/31/2021 COMPARISON: CT & US 2017 CLINICAL HISTORY: K52.9 Noninfective gastroenteritis and colitis. Intermittent diarrhea after eating x couple years, patient not NPO EXAM MEASUREMENTS: Liver Length: 15.4 cm Gallbladder Wall: 0.1 cm CBD: 0.4 cm Spleen: 10.5 cm Right Kidney: 8.8 x 3.8 x 4.7 cm Left Kidney: 10.1 x 5.0 x 4.2 cm Pancreas: duct seen measuring 0.3cm Liver: mildly heterogeneous, attenuating, increased echogenicity, 0.7cm cyst right lobe, 1.8cm hypoe choic area adjacent to gallbladder Gallbladder: wnl Evidence for sonographic Joseph's sign: no CBD: wnl Spleen: wnl Right Kidney: wnl Left Kidney: 1.2cm cyst medial mid pole Upper IVC: wnl Abd Aorta: wnl IMPRESSION: 1. Hepatic cyst. 2. Left renal cyst
== END | disposition home or self-care (01) ==
LOC: RADUSWWP 08:07
PROVIDERS: ATTEND Family Medicine
DX: K76.89 Other specified diseases of liver (principal); N28.1 Cyst of kidney, acquired; R19.7 Diarrhea, unspecified
CPT/HCPCS: 76700

== ENCOUNTER → 2021-08-20 | Outpatient (CLI) | payer MEDICARE, BC ==
--- NOTE | 2021-08-22 11:31 | MM ---
Reason for exam: screening (asymptomatic). Last mammogram was performed 1 year ago. History: Patient history of other cancer. Physical Findings: A clinical breast exam by your physician is recommended on an annual basis and results should be correlated with mammographic findings. MG 3D Screening Mammo W/Cad Bilateral CC and MLO view(s) were taken. Prior study comparison: August 13, 2020, bilateral MG 3d screening mammo w/cad. May 23, 2019, bilateral MG 3d screening mammo w/cad. There are scattered fibroglandular densities. There is no discrete abnormality. ASSESSMENT: Negative, BI-RAD 1 RECOMMENDATION: Routine screening mammogram of both breasts in 1 year.
== END | disposition home or self-care (01) ==
LOC: RADMAMWWP 08:18
PROVIDERS: ATTEND Family Medicine
DX: Z12.31 Encounter for screening mammogram for malignant neoplasm of breast (principal)
CPT/HCPCS: 77063; 77067

== ENCOUNTER → 2022-01-30 | Outpatient (CLI) | payer MEDICARE, BC ==
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
== END | disposition home or self-care (01) ==
LOC: RADMRIMAIN 14:16
PROVIDERS: ATTEND Internal Medicine Gastroenterology
DX: K76.0 Fatty (change of) liver, not elsewhere classified (principal); D35.02 Benign neoplasm of left adrenal gland; N28.1 Cyst of kidney, acquired
CPT/HCPCS: 74183; A9585

== ENCOUNTER → 2022-01-30 | Outpatient (CLI) | payer MEDICARE, BC ==
[2022-01-31 03:08] LABS: Gliadin AB IgA, Deaminated NEGATIVE (NEGATIVE); Gliadin AB IgA, Unit 0.3 U/mL; Gliadin AB IgG, Deaminated NEGATIVE (NEGATIVE); Gliadin AB IgG, Unit <0.4 U/mL
== END | disposition home or self-care (01) ==
LOC: LABWHC1 16:19
PROVIDERS: ATTEND Internal Medicine Gastroenterology
DX: K52.9 Noninfective gastroenteritis and colitis, unspecified (principal)
CPT/HCPCS: 36415; 83516; 85652; 86140

== ENCOUNTER → 2022-03-02 | Outpatient (CLI) | payer MEDICARE, BC | END | disposition home or self-care (01) | LOC: LABWHC1 08:03 | PROVIDERS: ATTEND Urology | DX: D35.00 Benign neoplasm of unspecified adrenal gland (principal) | CPT/HCPCS: 36415; 82088; 82533; 83835; 84244 ==

== ENCOUNTER → 2022-03-24 | Outpatient (CLI) | payer MEDICARE, BC ==
--- NOTE | 2022-03-24 12:35 | CT ---
EXAMINATION TYPE: CT abdomen wo/w con DATE OF EXAM: 03/24/2022 COMPARISON: 08/17/17 HISTORY: Benign neoplasm of adrenal gland. CT DLP: 1012 mGycm CONTRAST: CT scan of the abdomen is performed without Oral Contrast and without and with IV Contrast, patient i njected with 70ml mL of Isovue 300. FINDINGS: LUNG BASES-: No visible nodule. No infiltrate. Sliding-type hiatal hernia. LIVER/GB: No calcified gallstones. No space occupying hepatic lesion. Biliary tree is of normal ca liber. PANCREAS: No inflammation. No distinct mass. SPLEEN: No splenic enlargement. No lesion seen. ADRENALS: Stable left adrenal mass measuring 2.8 x 2.4 cm versus 2.8 cm previously. Microscopic fat i s again noted. This is compatible with stable adrenal adenoma. The right adrenal gland is unremarkabl e. KIDNEYS/BLADDER: No hydronephrosis. No nephrolithiasis. No distinct solid renal mass. Subcentimete r simple cyst left kidney. Urinary bladder grossly unremarkable. BOWEL: Lies bowel loops are of normal caliber. GENITAL ORGANS: No gross abnormality. LYMPH NODES: No greater than 1cm abdominal or pelvic lymph nodes are appreciated. AORTA: No significant abnormality. OSSEOUS STRUCTURES: Postoperative changes of fusion lumbar spine. Grade 3 anterolisthesis L5 on S1 me asuring 2.1 cm. OTHER: No significant additional abnormality is seen. IMPRESSION: 1. Stable left adrenal adenoma. 2. Grade 3 anterolisthesis L5 on S1 measuring 2.1 cm.
== END | disposition home or self-care (01) ==
LOC: RADCTMAIN 10:50
PROVIDERS: ATTEND Urology
DX: D35.02 Benign neoplasm of left adrenal gland (principal)
CPT/HCPCS: 82565; 84520; 74170; 36415; Q9967

== ENCOUNTER → 2022-08-26 | Outpatient (CLI) | payer MEDICARE, BC ==
--- NOTE | 2022-08-27 08:43 | MM ---
Reason for Exam: Screening (asymptomatic). Last screening mammogram was performed 12 month(s) ago. Patient History: Menarche at age 10. First Full-Term at age 16. Hysterectomy at age 38. Postmenopausal. Risk Values: [place] 5 year model risk: 1.3%. NCI Lifetime model risk: 3.1%. Prior Study Comparison: 05/23/2019 Bilateral Screening Mammogram, [facility]. 08/13/2020 Bilateral Screening Mammogram, [facility]. 08/20/2021 Bilateral Screening Mammogram, [facility]. Tissue Density: The breast tissue is heterogeneously dense. This may lower the sensitivity of mammography. Findings: Analyzed By CAD. There is no suspicious group of microcalcifications or new suspicious mass in either breast. Overall Assessment: Negative, BI-RAD 1 Management: Screening Mammogram of both breasts in 1 year. A clinical breast exam by your physician is recommended on an annual basis and results should be correlated with mammographic findings. Electronically signed and approved by: Víctor Dickson M.D. Radiologis
== END | disposition home or self-care (01) ==
LOC: RADMAMWWP 07:10
PROVIDERS: ATTEND Family Medicine
DX: Z12.31 Encounter for screening mammogram for malignant neoplasm of breast (principal); Z78.0 Asymptomatic menopausal state
CPT/HCPCS: 77063; 77067

== ENCOUNTER → 2023-02-12 | Outpatient (CLI) | payer MEDICARE, BC ==
--- NOTE | 2023-02-12 15:58 | US ---
EXAMINATION TYPE: US venous doppler duplex LE BI DATE OF EXAM: 02/12/2023 3:32 PM COMPARISON: Prior bilateral venous ultrasound March 31, 2021 CLINICAL INDICATION: Female, 72 years old with history of R60.0 EDEMA; edema recently, no h/o dvt SIDE PERFORMED: Bilateral TECHNIQUE: The lower extremity deep venous system is examined utilizing real time linear array sonog joanna with graded compression, doppler sonography and color-flow sonography. VESSELS IMAGED: Common Femoral Vein Deep Femoral Vein Greater Saphenous Vein * Femoral Vein Popliteal Vein Small Saphenous Vein * Proximal Calf Veins (* superficial vessels) Right Leg: Negative for DVT Left Leg: Negative for DVT Grayscale, color doppler, spectral doppler imaging performed of the deep veins of the bilateral lower extremities. There is normal flow, compressibility, vascular waveforms. IMPRESSION: No ultrasound evidence for acute DVT in either lower extremity. Mild subcutaneous edema distal right lower extremity noted.
== END | disposition home or self-care (01) ==
LOC: RADUSWWP 15:08
PROVIDERS: ATTEND Family Medicine
DX: R60.0 Localized edema (principal)
CPT/HCPCS: 93970

== ENCOUNTER → 2023-02-16 | Outpatient (CLI) | payer MEDICARE, BC ==
--- NOTE | 2023-02-16 11:58 | XR ---
EXAMINATION TYPE: XR foot complete LT DATE OF EXAM: 02/16/2023 COMPARISON: NONE HISTORY: Pain TECHNIQUE: Three views are submitted. FINDINGS: The osseous structures are intact. There is no acute fracture or dislocation. Mild concentric narr owing of the first MTP joint with a small spur involving the metatarsal. IMPRESSION: 1. No acute fracture or dislocation. If symptoms persist, follow-up exam in 7 to 10 days could be ob tained.
== END | disposition home or self-care (01) ==
LOC: RADXRMAIN 11:23
PROVIDERS: ATTEND Family Medicine
DX: M10.072 Idiopathic gout, left ankle and foot (principal)

== ENCOUNTER → 2023-07-13 | Outpatient (CLI) | payer MEDICARE, BC ==
--- NOTE | 2023-07-13 13:15 | CA ---
Exercise Stress Test Report Name: Kellee Glasgow Exam Date: 07/13/2023 09:58 Exam Location: [facility] Ht (in): 64 Wt (lb): 163 BSA: 1.79 Ordering Phys: Dewayne Veliz MD Referring Phys: Dewayne Veliz MD Technologist: pal garcia Age: 72 Gender: F : 1950 Procedure CPT: Indications: R07.89 CHEST PAIN Z78.[address] ICD-10 Codes: Patient History: HTN, DM, TOB (QUIT 23 YRS AGO PREVIOUSLY <.5PPD X 35YRS) Medications: SEE LIST Meds past 24 hrs: Pretest Chest Pain: STRESS TEST Que Protocol Exercise Duration (min:sec): 06:[address] Depressions (mm): Angina Score: Moore Score: Resting HR (bpm): 84 Peak HR (bpm): 133 Resting BP (mmHg): 151 / 83 Peak BP (mmHg): 193 / 86 MPHR: 146 Target HR: 124 % MPHR: 91 METS: 7.1 Total Dose: Peak Dose: Atropine: Double Product: 84200 BP Response: Stress Termination: Reached target heart rate Stress Symptoms: No chest pain or symptoms Stress Summary: ECG ANALYSIS Resting ECG: Normal sinus rhythm, normal axis, no blocks, heart rate 96 bpm Stress ECG: There is [address] depressions in lateral leads. There is monomorphic PVCs noticed during the study which increases in frequency with exercise. These PVCs results with rest. No sustained arrhythmias. CONCLUSIONS Fair exercise tolerance for patient's age achieving 7.1 METS Normal hemodynamic and clinical response to exercise Abnormal ECG response to exercise Probably abnormal treadmill stress test. Dr Santino Feldman (Electronically Signed) Final Date: 13 July 2023 13:14
--- NOTE | 2023-07-13 14:32 | BD ---
EXAMINATION TYPE: Axial Bone Density DATE OF EXAM: 07/13/2023 CLINICAL HISTORY: 72 years old Female. ICD-10 CODE: Z78.[address] Height: 63 Weight: 163 FRAX RISK QUESTIONS: Alcohol (3 or more units per day): no Family History (Parent hip fracture): no Glucocorticoids (More than 3mos): no (Ex: prednisone, prednisolone, methylprednisolone, dexamethasone, and hydrocortisone). History of Fracture in Adulthood: no Secondary Osteoporosis: 1. Type 1 Diabetes: no 2. Hyperthyroidism: no 3. Menopause before 45: yes 4. Malnutrition: no 5. Chronic liver disease: no Rheumatoid Arthritis: no Current Tobacco Use: no RISK FACTORS HISTORY OF: Surgery to Spine/Hip(right/left)/Wrist (right/left): spine Family History of Osteoporosis: no Active: yes Diet low in dairy products/other sources of calcium: yes Postmenopausal woman: yes MEDICATIONS: Thyroid Medications: levothyroxine How Lon months Additional History: EXAM MEASUREMENTS: Bone mineral densitometry was performed using the [employer] System. Bone mineral density about the R hip (g/cm2): 0.856 Bone mineral density about the L hip (g/cm2): 0.834 T Score values are as follows: -----R Neck: -1.6 -----L Neck: -1.9 -----R Total: -1.2 -----L Total: -1.4 Z Score values are as follows: -----R Neck: 0.1 -----L Neck: -0.2 -----R Total: 0.3 -----L Total: 0.1 Bone mineral density has: decreased -1.2 % since study of: 08.13.2020 Bone mineral density about the L Wrist (g/cm2): 0.566 T Score values are as follows: -----Dist. R+U: -20 -----Prox. R+U: -1.2 -----Radius total: -1.8 Z Score values are as follows: -----Dist. R+U: 0.2 -----Prox. R+U: 1.0 -----Radius total: 0.4 Bone mineral density has: decreased 1.0 % since study of: 08.13.2020 FRAX%s: The graph provided illustrates a 12.3 % chance for a major osteoporotic fx and a 2.9% chance for the hips probability for fx in 10 years time. IMPRESSION: Osteopenia (T Score between -2.5 and -1). There is slightly increased risk of fracture and the patient may be considered for treatment. Re-Screen 2-5 years. NOTE: T-SCORE=SD OF THE YOUNG ADULT MEAN.
== END | disposition home or self-care (01) ==
LOC: RADBDWWP 07:55
PROVIDERS: ATTEND Family Medicine
DX: M85.89 Other specified disorders of bone density and structure, multiple sites (principal); R07.89 Other chest pain; R94.31 Abnormal electrocardiogram [ECG] [EKG]; Z78.0 Asymptomatic menopausal state
CPT/HCPCS: 77080; 93017

== ENCOUNTER → 2023-08-30 | Outpatient (CLI) | payer MEDICARE, BC ==
--- NOTE | 2023-08-31 16:13 | MM ---
Reason for Exam: Screening (asymptomatic). Last screening mammogram was performed 12 month(s) ago. Patient History: Menarche at age 10. First Full-Term at age 16. Hysterectomy at age 38. Postmenopausal. Risk Values: [place] 5 year model risk: 1.3%. NCI Lifetime model risk: 3.0%. Prior Study Comparison: 08/13/2020 Bilateral Screening Mammogram, [facility]. 08/20/2021 Bilateral Screening Mammogram, [facility]. 08/26/2022 Bilateral MG 3D screening mammo w/cad, [facility]. Tissue Density: There are scattered fibroglandular densities. Findings: Analyzed By CAD. Abdomen appears symmetrical and stable. No significant interval change is evident. Stable asymmetries in the upper outer left breast. No suspicious groups of microcalcifications, spiculated or lobular masses, architectural distortion or other secondary signs of malignancy are mammographically apparent. Overall Assessment: Benign, BI-RAD 2 Management: Screening Mammogram of both breasts in 1 year. A negative mammogram report should not preclude additional follow up of suspicious palpable abnormalities. Patient should continue monthly self breast exam. A clinical breast exam by your physician is recommended on an annual basis and results should be correlated with mammographic findings. Electronically signed and approved by: Harjeet Marie D.O. Radiologis
== END | disposition home or self-care (01) ==
LOC: RADMAMWWP 08:24
PROVIDERS: ATTEND Family Medicine
DX: Z12.31 Encounter for screening mammogram for malignant neoplasm of breast (principal); Z78.0 Asymptomatic menopausal state
CPT/HCPCS: 77063; 77067

== ENCOUNTER → 2024-05-10 | Outpatient (CLI) | payer MEDICARE, BC ==
--- NOTE | 2024-05-30 13:41 | CT ---
EXAMINATION TYPE: CT adrenal glands wo/w con CT DLP: 1007 mGycm, Automated exposure control for dose reduction was used. DATE OF EXAM: 05/10/2024 COMPARISON: CT abdomen pelvis most recent from 04/09/2023, CT abdomen 03/24/2022 . CLINICAL INDICATION:Female, 73 years old with history of D35.00 Adrenal Nodule; TECHNIQUE: Multiphase CT of the abdomen following the administration of 80 cc of Isovue 300 IV contr ast material and oral contrast. Coronal and sagittal reformats were performed. FINDINGS: LOWER CHEST: Posterior dependent subsegmental atelectasis is noted. ABDOMEN LIVER: Subcentimeter hypodense focus within the inferior right hepatic lobe consistent with known cys t. Additional right inferior hepatic lobe 1.0 cm hyperattenuating lesion as with known benign hemangi mauro. GALLBLADDER AND BILE DUCTS: Unremarkable. PANCREAS: Unremarkable. SPLEEN: Unremarkable. ADRENAL GLANDS: Right adrenal gland is unremarkable. Stable left adrenal gland nodule measuring 2.8 x 2.5 cm with a Hounsfield unit of 19 on noncontrast imaging. This demonstrates heterogenous enhanceme nt with a focal round more hyperdense region measuring 1.1 cm and is similar to prior MRI and prior C T 04/09/2023. This region measures decreased enhancement with the surrounding adrenal parenchyma on th e delayed phase. KIDNEYS AND URETERS: No evidence of hydronephrosis . Nonobstructive right superior pole 6 mm calculus . Stable left mid kidney exophytic cyst. Contrast is demonstrated within both collecting systems on t he delayed phase. STOMACH AND BOWEL: No visualized focal wall thickening or surrounding inflammatory changes. No eviden ce of bowel obstruction. PERITONEUM: No evidence of pneumoperitoneum or free fluid. VASCULATURE: Mild atherosclerotic calcifications are present throughout the abdominal aorta and its b ranches. No evidence of aortic aneurysm. MUSCULOSKELETAL: No acute osseous abnormalities . Partial visualization of lumbar fusion hardware. Th is creates streak artifact limiting evaluation. LYMPH NODES: No evidence for lymphadenopathy. SOFT TISSUE/ABDOMINAL WALL: Unremarkable IMPRESSION: Stable left adrenal gland heterogenous lesion. 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 Stability dating jess k to 2017 suggests a benign process.
== END | disposition home or self-care (01) ==
LOC: RADCTMAIN 08:42
PROVIDERS: ATTEND Urology
DX: D35.00 Benign neoplasm of unspecified adrenal gland (principal); J98.11 Atelectasis; N28.1 Cyst of kidney, acquired
CPT/HCPCS: 74170

== ENCOUNTER → 2024-08-31 | Outpatient (CLI) | payer MEDICARE, BC ==
--- NOTE | 2024-09-03 00:59 | MM ---
Reason for Exam: Screening (asymptomatic). Last screening mammogram was performed 12 month(s) ago. Patient History: Menarche at age 10. First Full-Term at age 16. Hysterectomy at age 38. Postmenopausal. Risk Values: [place] 5 year model risk: 1.3%. NCI Lifetime model risk: 2.8%. Prior Study Comparison: 08/20/2021 Bilateral Screening Mammogram, [facility]. 08/26/2022 Bilateral MG 3D screening mammo w/cad, [facility]. 08/30/2023 Bilateral MG 3D screening mammo w/cad, [facility]. Tissue Density: There are scattered areas of fibroglandular density. Findings: Analyzed By CAD. The pattern is symmetrical. Small focal asymmetries in the upper outer left breast stable from comparison. No suspicious groups of microcalcifications, spiculated or lobular masses, architectural distortion or other secondary signs of malignancy are mammographically apparent. Overall Assessment: Benign, BI-RAD 2 Management: Screening Mammogram of both breasts in 1 year. A negative mammogram report should not preclude additional follow up of suspicious palpable abnormalities. Patient should continue monthly self breast exam. A clinical breast exam by your physician is recommended on an annual basis and results should be correlated with mammographic findings. Note on Vinita scores and lifetime risk: 1. A [place]a score greater than 3% is considered moderate risk. If this is the case, consider specialist referral to assess eligibility for a risk reducing agent. 2. If overall lifetime risk for the development of breast cancer is 20% or higher, the patient may qualify for future screening with alternating mammogram and breast MRI. [facility], , 09/03/2024 12:56 AM. Electronically signed and approved by: Harjeet Marie D.O. Radiologis
== END | disposition home or self-care (01) ==
LOC: RADMAMWWP 11:52
PROVIDERS: ATTEND Family Medicine
DX: Z12.31 Encounter for screening mammogram for malignant neoplasm of breast (principal); Z78.0 Asymptomatic menopausal state; R92.323 Mammographic fibroglandular density, bilateral breasts
CPT/HCPCS: 77063; 77067